=== PATIENT | female | born 1975 | race Caucasian/White ===

== ENCOUNTER 2022-03-10 16:00 | Outpatient (CLI) | payer OTHER, SELFPAY ==
[2022-03-10 17:29] LABS: Chloride* 101 mmol/L (96-114); Potassium* 4.1 mmol/L (3.6-5.1); Sodium* 136 mmol/L (135-149)
[2022-03-10 17:31] LABS: Cholesterol* 148 mg/dL (90-199)
[2022-03-10 17:32] LABS: Blood Urea Nitrogen* 15 mg/dL (5-24); Calcium* 9.6 mg/dL (8.4-10.6); Carbon Dioxide* 29 mmol/L (20-32); Creatinine* 0.7 mg/dL (0.5-1.5); Estimated Glomerular Filt Rate 108 ml/min; Glucose* 130 mg/dL (60-115); HDL Cholesterol* 61 mg/dL (>=50); LDL Cholesterol Calculated 48 mg/dL (<100); Triglycerides* 195 mg/dL (40-149)
== END 2022-03-10 16:01 | disposition home or self-care (01) ==
LOC: NFLDREF 16:03
PROVIDERS: PCP Family Medicine; Visit Provider Family Medicine
DX: I10 Essential (primary) hypertension (principal); E78.5 Hyperlipidemia, unspecified; E11.9 Type 2 diabetes mellitus without complications; E66.01 Morbid (severe) obesity due to excess calories
CPT/HCPCS: 80048; 80061

== ENCOUNTER 2022-10-27 10:05 | Outpatient (CLI) | payer OTHER, SELFPAY | END 2022-10-27 10:06 | disposition home or self-care (01) | PROVIDERS: PCP Family Medicine; Visit Provider Family Medicine | DX: Z01.818 Encounter for other preprocedural examination (principal); I10 Essential (primary) hypertension; E11.9 Type 2 diabetes mellitus without complications | CPT/HCPCS: 80048; 80061; 84460 ==

== ENCOUNTER 2022-11-14 09:01 | Inpatient (IN) | payer OTHER, SELFPAY ==
[2022-11-14] VITALS (32 sets, daily range): BP systolic 93–138; BP diastolic 47–86; PULSE 65–89; RESP 12–20; TEMP 36.3–36.9; O2SAT 92–97; BMI 39.9
[2022-11-14 09:38] LABS: Hemoglobin* 13.7 gm/dL (12.0-16.0)
--- NOTE | 2022-11-14 09:47 | W.PM.GYNPROC ---
Procedure Note Date of procedure: 11/14/22 Pre-op diagnosis: 1. Menorrhagia, failed medical management. 2. Large myomatous uterus. Post-op diagnosis: same Procedure: Total abdominal hysterectomy. Bilateral salpingectomies. Anesthesia: GETA and other (TAP block) Complications: None. Surgeon: Bette Denney MD Video Machines Mechanic: Francoise Ham Estimated blood loss (mL): 100 Pathology: specimen obtained, sent to pathology Condition: stable Disposition: PACU Findings: Enlarged, irregular lobular uterus containing multiple uterine fibroids. Uterine weight: 461 g. Evidence of prior tubal ligation. Normal-appearing distal fallopian tubes bilaterally. Left ovarian simple cyst, approximately 2 cm, otherwise normal-appearing ovaries bilaterally. Procedure Description: After obtaining informed consent, the patient was taken to the operating room where general anesthesia was obtained without difficulty. She was prepared and draped in the normal sterile fashion in the dorsal supine position. A Ma catheter was inserted sterilely into the bladder. A Pfannenstiel skin incision was made with a scalpel. The incision was not made to finger breast above the symphysis pubis, above the previous Pfannenstiel scar, as that scar was in a skin fold and thought to be too close to the symphysis pubis to provide adequate visualization. The incision was carried down to the underlying layer of fascia with the Bovie. The fascia was incised in the midline and the incision extended laterally. The superior and inferior aspects of the fascial incision were grasped with Helder clamps and the underlying rectus muscles dissected off sharply. The rectus muscles were in the midline. The underlying peritoneum was identified and entered bluntly. The peritoneal incision was extended superiorly and inferiorly with good visualization of the bladder. The patient was placed in some mild Trendelenburg positioning. The bowels were packed cephalad using a large moistened laparotomy sponge. The Cristino O retractor was placed in the incision. This provided excellent visualization of the pelvis. The pelvis was inspected with the findings noted above. Thao clamps were placed at the cornua bilaterally for traction. The ureters were nonvisualized given the significant adipose in the pelvis and obstruction of view due to the large uterus. The distal left fallopian tube was elevated with 2 Hector clamps, and the hand-held LigaSure device was used to seal the vascular and broad ligament attachments and excise the distal to. The right fallopian tube was elevated and excised using the handheld LigaSure device in a similar fashion. Excellent hemostasis was visualized. The right right round ligament was doubly clamped with Helder clamps, transected, and suture ligated with 0 Vicryl. The anterior leaf of the broad ligament was opened to the midline from the right side. The right ovarian ligament was then isolated, clamped across with 2 Dave clamps, transected, and doubly suture ligated with 0 Vicryl. Hemostasis was observed. Attention was then turned to the left side. The left round ligament was clamped with 2 Helder clamps, transected, and suture ligated with 0 Vicryl. The anterior leaf of the broad ligament was opened from the left side to the midline. The bladder was further pushed caudally with a sponge stick. The left ovarian ligament was clamped with 2 Dave clamps, transected, and doubly suture ligated with 0 Vicryl. Hemostasis was visualized. At this time, visualization access to the uterine arteries on both sides was thought to be impeded by a large anterior uterine fibroid. The decision was made to proceed with myomectomy. A dilute solution of vasopressin, 20 units in 50 mL normal saline, was injected into the anterior uterine serosa over the surface of the large anterior uterine fibroid. The serosa was then opened with electric cautery and the incision extended through the serosa to the underlying uterine fibroid. The fibroid was grasped with perforating towel clamps and bluntly and sharply dissected from the uterine myometrium. The fibroid was then passed off the field. The uterine serosa was reapproximated in a running locking fashion with 0 Vicryl to close the defect. The left uterine vessels were skeletonized and then clamped across with Dave clamps, transected, and suture ligated. Excellent hemostasis was obtained. The uterine vessels were skeletonized on the right side. The vessels were clamped across with a Dave and a straight clamp, transected, and suture ligated. Excellent hemostasis was obtained. The remaining cardinal and uterosacral ligament attachments on both sides were clamped with straight Dave clamps adjacent to the lower uterine segment and cervix, transected and suture ligated with 0 Vicryl. Excellent hemostasis was obtained. Two Dave clamps were placed across the vaginal cuff angles. The uterus with attached cervix was then transected and passed off the field. The vaginal cuff angles were fixed with Dave stitches of 0 Vicryl. The intervening vaginal cuff was closed with [id number] sutures of 0 Vicryl. The abdomen and pelvis were then copiously irrigated. No active bleeding was noted. Shellie was placed over raw tissue edges for additional hemostasis. All laparotomy sponges and instruments were then removed. The subfascial tissues were carefully inspected and hemostasis assured. The fascia was reapproximated in a running fashion with a looped 0 Maxon suture. The subcutaneous tissues were copiously irrigated and hemostasis assured. The subcutaneous adipose layer was reapproximated with interrupted sutures of 3-0 plain gut. The skin was closed in a subcuticular fashion with 4-0 Vicryl. Exofin surgical glue and a dressing were applied. The patient tolerated the procedure well. Sponge, lap, needle, instrument counts were reported as correct x2. The patient was taken to recovery room awake and in stable condition. She received 2 g of IV Ancef preoperatively. The uterus was weighed at the conclusion of the procedure, weight was 461 g. PATHOLOGY SPECIMEN(S): Uterus with attached cervix and attached proximal fallopian tubes. Separate anterior uterine leiomyoma. Distal fallopian tubes. The case needs a 22 modifier given the size of the uterus and patient's body habitus which made the case more difficult.
[2022-11-14 09:51] LABS: Ur HCG Qualitative* Negative (Negative)
[2022-11-14 09:54] LABS: Creatinine* 0.8 mg/dL (0.5-1.5); Est. Creatinine Clearance* 75.88; Estimated Glomerular Filt Rate 92 ml/min
--- NOTE | 2022-11-14 09:54 | W.ANESCHARGE ---
Anesthesia Charges Start Date/Time Anesthesia Start Date: 11/14/22 Anesthesia Start Time: 10:13 Stop Date/Time Anesthesia Stop Date: 11/14/22 Anesthesia Stop Time: 12:57
--- NOTE | 2022-11-14 09:54 | W.PM.NB ---
Nerve Block Nerve Block Time Seen by Provider: 10:24 Date Seen: 11/14/22 Type of block requested by surgeon for post-operative analgesia: TAP Side: bilateral Time out performed: Yes Verification of patient name: Yes Verification of date of : Yes Site marking: site marked Name of person performing procedure: Ke Continuous monitoring Was continuous monitoring of O2 sat, B/P, monitoring specialist, recorded every 15 minutes?: Yes Procedure Checklist: sterile prep, needles and gloves Ultrasound guided. Images saved: Yes Medications given in 5ml increments after negative aspiration: Marcaine %: 0.25 mL: 30 Needle gauge: 20 and Exparel mL: 10 Patient tolerated procedure well: Yes Additional comments: Needle noted adjacent to nerve Block Charges Block Charge (with Pro Fee): TAP Bilateral Use of Ultrasound Machine for Block: Yes- US Guidance/pain block
--- NOTE | 2022-11-14 10:09 | SUR.PREOP ---
unable to get iv statred here in preop. will start it in or, per anesthesia
[2022-11-14] MEDS: LACTATED RINGERS 1000 ML 1,000 ML 100 ML IV ×2 (10:17→11:18)
[2022-11-14] MEDS: CEFAZOLIN 2 GM INJ IVP (10:23)
[2022-11-14] MEDS: VASOPRESSIN 20 UNIT/ML INJ INJECTION (11:26)
[2022-11-14] MEDS: 0.9 % SODIUM CHLORIDE 100 ml 50 ML INJECTION (11:26)
--- NOTE | 2022-11-14 13:00 | W.ANESCHARGE ---
Anesthesia Charges Start Date/Time Anesthesia Start Date: 11/14/22 Anesthesia Start Time: 10:13 Stop Date/Time Anesthesia Stop Date: 11/14/22 Anesthesia Stop Time: 12:57
[2022-11-14] MEDS: fentaNYL 100 MCG/2 ML inj 50 MCG IVP ×2 (13:22→14:17)
[2022-11-14] MEDS: HYDROmorphone 0.5 mg/0.5 ml inj IVP ×3 (13:27→13:59)
[2022-11-14] MEDS: LACTATED RINGERS 1000 ML 1,000 ML 35 ML IV (13:30)
[2022-11-14] MEDS: MORPHINE 2 MG/ML inj IVP ×4 (14:46→22:34)
[2022-11-14] MEDS: KETOROLAC 30 MG/ML inj IVP (18:35)
[2022-11-14] MEDS: OXYCODONE 5 MG TABLET PO ×2 (19:23→23:33)
[2022-11-14] MEDS: LACTATED RINGERS 1000 ML 1,000 ML 125 ML IV (19:25)
[2022-11-14] MEDS: ENOXAPARIN 40 MG/0.4 ML INJ SUBCUT (20:48)
--- NOTE | 2022-11-14 22:26 | PC.NURSE ---
End of Shift: Patient pleasant and cooperative. Afebrile. Rating pain 9/10 upon arrival from PACU. Pain decreased to 5-6/10 throughout shift with PRN Morphine and Oxycodone and patient states tolerable. Up to chair with 1 assist. Tolerating regular diet with no nausea. Ma patent. Dressing to lower abdominal incision C/D/I. No bleeding noted.
[2022-11-15] MEDS: KETOROLAC 30 MG/ML inj IVP ×4 (00:21→18:57)
[2022-11-15 02:54] VITALS: BP 102/57; PULSE 80; RESP 16; TEMP 36.6; O2SAT 96
[2022-11-15] MEDS: OXYCODONE 5 MG TABLET PO ×3 (03:48→20:25)
[2022-11-15 06:42] LABS: Hemoglobin* 12.1 gm/dL (12.0-16.0)
--- NOTE | 2022-11-15 06:46 | PC.NURSE ---
End of shift: A&O pleasant and cooperative. VSS w/ sats >90% on RA. Pt rating pain 4-5/10. See eMAR for intervention. Dressing to abdomen c/d/i. Saline locked. Ambulated w/ A1 and gait belt. Tolerated well. Tolerating regular diet. Ma pulled this morning. ?
[2022-11-15 06:56] LABS: Creatinine* 0.8 mg/dL (0.5-1.5); Est. Creatinine Clearance* 75.88; Estimated Glomerular Filt Rate 92 ml/min
[2022-11-15 08:04] VITALS: BP 95/62; PULSE 85; RESP 16; TEMP 36.8; O2SAT 99
[2022-11-15] MEDS: ACETAMINOPHEN 500 MG TABLET 1000 MG PO (08:17)
[2022-11-15] MEDS: GLIMEPIRIDE 4 MG TABLET PO (08:19)
[2022-11-15] MEDS: hydroCHLOROthiazide 12.5 MG CAPSULE PO (08:19)
[2022-11-15] MEDS: lisinopriL 10 MG TABLET PO (08:19)
--- NOTE | 2022-11-15 08:39 | P.GYNPN_ITS ---
GRANITE BLOCK PAVER - A/P Assessment and plan (1) Status post abdominal hysterectomy: Status: Acute Postoperative Procedures: Procedures Operation Date: 11/14/22 10:15 Actual Procedure Side Surgeon p Total Abdominal Hysterectomy, Bilateral Salpingectomies Bette Denney MD Postoperative day: 1 Postoperative status: doing well Postoperative plan: routine post-op care Time Spent With Patient Time: Total time spent is greater than 50% in coordination of care (as documented) at patient's floor/unit and/or counseling patient: Time with patient: less than 15 minutes GRANITE BLOCK PAVER- PN:Subj Post-Op Subjective Time Seen by Provider: 08:30 Date Seen: 11/15/22 Post Operative Details: Post-operative day number 1: status post total abdominal hysterectomy with bilateral salpingectomies for menorrhagia secondary to a large myomatous uterus. Subjective: patient has no complaints, pain is well controlled, ambulating well, voiding without difficulty and patient is tolerating oral intake GRANITE BLOCK PAVER-PN: Obj Exam Physical Exam: Vital signs: Temp Pulse Resp BP Pulse Ox O2 Del Method 98.2 F 85 16 95/62 99 Room Air 11/15/22 08:04 11/15/22 08:04 11/15/22 08:04 11/15/22 08:04 11/15/22 08:04 11/15/22 08:04 Constitutional: Constitutional: no acute distress Routine HEENT Exam: Head: Present normal inspection Routine Neck Exam: Neck: Present supple Routine Respiratory Exam: Respiratory: Present CTA bilaterally; Absent crackles, rhonchi or wheezes Routine Cardiovascular Exam: Cardiovascular: Present RRR; Absent murmur Routine Abdominal Exam: Abdominal: Present normal bowel sounds and soft; Absent distended or tenderness Comments: Incision(s) clean, dry, intact Routine Extremities Exam: Extremities: Present normal inspection; Absent calf tenderness or pedal edema Routine Psychiatric Exam: Psychiatric: Present normal affect Urinary Catheter Management: Urethral: Cath placed during this visit: yes, but has since been removed by the nurse Reason for continuing: surgical procedure Insertion date: 11/14/22 Insertion time: 10:33 Removal date: 11/15/22 Removal time: 06:15 GRANITE BLOCK PAVER - PN: Obj Data Labs Labs: Laboratory Results - last 24 hr 11/14/22 11/14/22 11/15/22 09:30 Unknown 06:27 Hgb 13.7 12.1 Creatinine 0.8 0.8 Estimated Creat Clear 75.88 75.88 Estimated GFR 92 92 Urine HCG, Qual Negative Blood Type A Positive Antibody Screen NEGATIVE
[2022-11-15] MEDS: METFORMIN ER 500 MG 2000 MG PO (10:56)
[2022-11-15 11:38] VITALS: BP 119/70; PULSE 67; RESP 16; TEMP 36.6; O2SAT 100
[2022-11-15] MEDS: SIMETHICONE 80 MG TAB.CHEW 160 MG PO ×2 (15:25→20:25)
[2022-11-15 16:36] VITALS: BP 106/63; PULSE 84; RESP 16; TEMP 36.3; O2SAT 96
--- NOTE | 2022-11-15 18:22 | PC.NURSE ---
End of Shift:VSS on RA, patient reports pain between 4-6 this shift. Tolerating well after PRN medication administration. I gave PRN tylenol 1x and PRN oxy 1x as well. Horizontal incision CDI, open to air with dermabond. No erythema or drainage present. Pt reports feeling bloated and full, PRN simethicone given. Reports passing gas after administration. Voiding well. No bleeding this shift. Tolerating a regular diet with no nausea. Educated about importance of walking, TEDS in place, she refused SCD's this afternoon. Resting in bed comfortably with call light within reach. Calls appropriately. SBA to go to the BR and to walk.
[2022-11-15 19:30] VITALS: BP 105/60; PULSE 78; RESP 16; TEMP 36.6; O2SAT 97
[2022-11-15] MEDS: SENNOSIDES/DOCUSATE TABLET 2 TAB PO (20:20)
[2022-11-15] MEDS: ENOXAPARIN 40 MG/0.4 ML INJ SUBCUT (20:21)
--- NOTE | 2022-11-15 22:42 | PC.NURSE ---
End of shift nursing note, care provided from [id number]: Pt alert and oriented, pleasant and cooperative. Vitals stable, on RA. Pt rates pain 4-6/10 to abdomen. PRN Oxycodone 5mg admin. Ibuprofen time adjusted to follow direction of beginning 4hrs after last Toradol order. PRN Simethicone admin for gas relief. Scheduled Senna admin. Pt ambulated in [facility], able to pass flatus and have some relief from bloating discomfort. Incision to abd open to air w/ surgical glue in place, clean, dry and intact. Incision free of redness, warmth and swelling. Tolerated dinner, ate only about 25%, but denies nausea and has appetite. Tolerating oral intake. Voiding. Up w/ SBA. IV to L AC, flushed and saline locked. Pt has call light within reach and uses appropriately.
[2022-11-15] MEDS: IBUPROFEN 600 MG TABLET PO (22:58)
[2022-11-15 23:20] VITALS: BP 103/59; PULSE 78; PULSE 93; RESP 16; TEMP 36.7; O2SAT 96
[2022-11-16 02:48] VITALS: BP 117/70; PULSE 78; RESP 16; TEMP 36.7; O2SAT 95
[2022-11-16] MEDS: OXYCODONE 5 MG TABLET PO (05:10)
[2022-11-16] MEDS: IBUPROFEN 600 MG TABLET PO ×2 (05:10→11:11)
--- NOTE | 2022-11-16 06:43 | PC.NURSE ---
Pt alert and oriented x3. Afebrile. Pt reports pain 4/10 in?abdomen, pain managed with PRN medications. Pt chest pain, SOB, and N/V. Pt abdominal incision is glued and open to air and is CDI.?Pt is tolerating reg diet and voiding. Pt is up SBA. Pt slept throughout most of night.??
[2022-11-16 07:52] VITALS: BP 107/69; PULSE 78; RESP 16; TEMP 36.7; O2SAT 97
[2022-11-16] MEDS: GLIMEPIRIDE 4 MG TABLET PO (08:01)
[2022-11-16] MEDS: hydroCHLOROthiazide 12.5 MG CAPSULE PO (08:01)
[2022-11-16] MEDS: lisinopriL 10 MG TABLET PO (08:03)
[2022-11-16] MEDS: SIMETHICONE 80 MG TAB.CHEW 160 MG PO (08:03)
[2022-11-16] MEDS: METFORMIN ER 500 MG 2000 MG PO (08:04)
--- NOTE | 2022-11-16 10:37 | P.DS_ITS ---
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 Indication for surgery: Abnormal uterine bleeding, myomatous uterus. She had an uncomplicated surgery. Postoperative course has been uneventful. Vitals have been stable. She has remained afebrile. Today, on postoperative day 2, she reports the pain is well controlled. She has been able to ambulate Without difficulty. She is tolerating regular diet. She is passing flatus. Ma catheter has been removed, and she is voiding without difficulty. Time Spent with Patient Time attestation: Total time spent providing and/or coordinating discharge services: Time spent: Less than 30 minutes LAUNDRY PRICING CLERK - Exam Physical Exam: Vital signs: Temp Pulse Resp BP Pulse Ox O2 Del Method 98.0 F 78 16 107/69 97 Room Air 11/16/22 07:52 11/16/22 07:52 11/16/22 07:52 11/16/22 07:52 11/16/22 07:52 11/16/22 07:52 Narrative: VITAL SIGNS: As noted above. GENERAL APPEARANCE: Alert, cooperative female in no acute distress. MOOD & AFFECT: Normal. ABDOMEN: Soft, non-distended and appropriately tender, incision healing well, no surrounding erythema, induration or abnormal discharge. : No abnormal discharge, minimal spotting. EXTREMITIES: Nonedematous. Well perfused. Nontender. LAUNDRY PRICING CLERK - DS: Data Procedures Procedures: Procedures Operation Date: 11/14/22 10:15 Actual Procedure Side Surgeon p Total Abdominal Hysterectomy, Bilateral Salpingectomies Bette Denney MD Complications: none Discharge Plan Discharge Disposition: Home, Self-Care Date of Admission: 11/14/22 09:01 Attending Provider on Discharge: Paola Sharp Primary Care Provider: Madan Wilkinson Condition: Stable Anticipated Discharge Date/Time: 11/16/22 12:00 Discharge Medications: New ibuprofen 600 mg Tablet 600 mg PO Q6H Qty: 30 0RF oxycodone 5 mg Tablet 5 mg PO Q6H PRN (Reason: Moderate Pain) Qty: 20 0RF Continued gabapentin 100 mg capsule 100 mg PO 3XD metformin 500 mg tablet extended release 24 hr 2,000 mg PO QDAY Qty: 120 5RF atorvastatin [Lipitor] 10 mg tablet 10 mg PO QPM Qty: 30 5RF Senna Plus 8.6-50 mg capsule 2 tab-cap PO .QHS dextroamphetamine-amphetamine [Adderall XR] 30 mg capsule,extended release 24hr 60 mg PO QDAY lisinopril-hydrochlorothiazide 10-12.5 mg tablet 1 tab PO QDAY Qty: 90 3RF glimepiride 4 mg tablet 4 mg PO QAM Qty: 30 2RF Rx Instructions: administer with breakfast Discontinued Mirena 20 mcg/24 hours (8 yrs) 52 mg intrauterine device 1 device intrauterine ONCE Rx Instructions: as a single dose No Action (DME) lancets [OneTouch UltraSoft Lancets] Misc See Rx Instructions .Route Qty: 100 12RF Rx Instructions: BID PRN (DME) blood-glucose meter [OneTouch Ultra2 Meter] Misc See Rx Instructions .Route Rx Instructions: As directed (DME) OneTouch Ultra Test Strip See Rx Instructions .Route Rx Instructions: BID PRN Discharge Orders: Discharge Order (Routine); Ordered 11/16/22 Ordered By: Paola Sharp Patient Education: Hysterectomy (DC) Additional Instructions: Discharge instructions were reviewed with the patient including signs and symptoms of infection and medications to use for pain.? ? No lifting greater than 20 pounds for 6 weeks. Nothing per vagina for 6 weeks. Off work or school for 6 weeks. ? Follow up with your surgeon in 2 weeks for incision check and 6 weeks for a postoperative visit or sooner as needed. Activity Level: No strenuous activity Discharge Diet: Diabetic Follow Up Appointments: Madan Wilkinson MD [Primary Care Provider] - [facility]: [facility] Inst[facility]
--- NOTE | 2022-11-16 11:55 | PC.NURSE ---
Discharge note- Pt discharged home @ 1130 with her , all discharge instructions were reviewed and educated on symptoms regarding infection and when her follow up appointment is. Prescriptions were sent to her preferred pharmacy.
== END 2022-11-16 11:30 | disposition home or self-care (01) | DRG 742 ==
PROVIDERS: Admitting Provider Obstetrics & Gynecology; PCP Family Medicine; Visit Provider Obstetrics & Gynecology
PROC: 0UT94ZZ Resection of Uterus, Percutaneous Endoscopic Approach (ICD-10-PCS; CPT 52000; principal; 2022-11-14 10:15)
DX: N92.0 Excessive and frequent menstruation with regular cycle (principal); Z68.41 Body mass index [BMI] 40.0-44.9, adult; D25.9 Leiomyoma of uterus, unspecified; N84.1 Polyp of cervix uteri; N83.292 Other ovarian cyst, left side; E66.01 Morbid (severe) obesity due to excess calories; I10 Essential (primary) hypertension; E11.65 Type 2 diabetes mellitus with hyperglycemia; Z79.84 Long term (current) use of oral hypoglycemic drugs; G47.419 Narcolepsy without cataplexy; Z86.73 Personal history of transient ischemic attack (TIA), and cerebral infarction without residual deficits; G89.18 Other acute postprocedural pain
CPT/HCPCS: 00840; 36415; 64488; 76942; 81025; 82565; 82962; 85018; 86850; 86900; 86901; 88307; A9270; C9290; J0665; J0690; J1100; J1170; J1650; J1885; J2250; J2270; J2371; J2405; J2704; J2710; J3010; J3475; J7120

== ENCOUNTER 2023-05-16 13:43 | Outpatient (REF) | payer BC, SELFPAY ==
[2023-05-16 14:45] LABS: Ferritin* 53.6 ng/mL (6.24-137.0)
== END 2023-05-16 13:44 | disposition home or self-care (01) ==
LOC: NPINS 13:43
PROVIDERS: PCP Family Medicine; Visit Provider Psychiatry & Neurology Neurology
DX: N92.0 Excessive and frequent menstruation with regular cycle (principal)
CPT/HCPCS: 82728

== ENCOUNTER 2023-11-21 08:31 | Outpatient (CLI) | payer BC, SELFPAY ==
--- OUTSIDE RECORDS SUMMARY | 2023-11-21 08:35 | XMS_ITS | Clinical Summary ---
Author Organization [facility] Address [address] [place] [address] Care Team Providers Care Lands Resource Manager Name Role Phone Unavailable Primary Care Provider Unavailabl e Source Comments Patient records contain information from all sites at [facility]. For routine questions regarding patient records, call [phone] during business hours, M-F 8:00 AM - 5:00 PM Central Time. Record requests for emergency care only can be directed to [phone] at any time.[facility] Allergies No known active allergies Medications Medication Sig Dispensed Refills Start Date End Date Status atorvastatin (LIPITOR) 10 mg tablet Take 10 mg by mouth daily. 06/15/2019 Active amphetamine-dextroam phetamine (ADDERALL XR) 30 mg 24 hr capsule Take 60 mg by mouth daily. 12/08/2011 Active metFORMIN XR (GLUCOPHAGE-XR) 500 mg 24 hr tablet Take 2 tablets by mouth daily. 05/12/2019 Active polyethylene glycol (MIRALAX) 17 gram/dose oral powder Take 17 g by mouth daily as needed for constipation. Dissolve each 17 g dose in 240 mLs (8 ounces) of beverage. Active clotrimazole-betamet hasone (LOTRISONE) 1-0.05 % cream Twice A Day 06/18/2014 Active Accu-Chek Softclix Lancets lancets TEST TWICE DAILY NEEDED 03/31/2020 Active FLUoxetine (PROzac) 40 mg capsule Take 40 mg by mouth daily. 08/03/2021 Active lisinopril-hydroCHLO ROthiazide (PRINZIDE,ZESTORETIC ) 10-12.5 mg per tablet Take 1 tablet by mouth daily. 08/03/2021 Active gabapentin (NEURONTIN) 100 mg capsule Take 1-3 capsule by mouth every night as directed 1 hr before bed for RLS 04/25/2022 Active lamoTRIgine (LaMICtaL) 100 mg tabletIndications:[facility] (HCC) Take 1 tablet (100 mg total) by mouth 2 (two) times a day. AFTER COMPLETING 25 MG RX PER MED SCHEDULE, SWITCH TO 100 MG AND TAKE 1 TABLET TWICE DAILY 60 tablet 11 08/28/2022 Active lamoTRIgine (LaMICtaL) 25 mg tabletIndications:[facility] (HCC) Take 2 tablets (50 mg total) by mouth 2 (two) times a day for 7 days, THEN 2 tablets (50 mg total) daily for 7 days. Then discontinue.. 42 tablet 10/30/2022 Active Active Problems Problem Noted Date Diagnosed Date [facility] 05/05/2020 Craniotomy Status Post 02/26/2020 Diabetes Mellitus Type 2 02/26/2020 Hyponatremia 02/26/2020 Mass Dura Brain 01/13/2020 Overview (01/13/2020): Added automatically from request for surgery [id number] Social History Tobacco Use Types Packs/Day Years Used Date Smoking Tobacco: Never Smokeless Tobacco: Never Tobacco Cessation:Counseling Given: Not Answered Alcohol Use Standard Drinks/Week Comments Not Currently 0 (1 standard drink = 0.6 oz pur e alcohol) a couple drinks per month Humiliation, Afraid, Rape, and Kick questionnair e Answer Date Recorded Within the last year, have y ou been afraid of your partner or ex-partner? No 06/28/2022 Within the last year, have y ou been humiliated or emotionally abused in other ways by your partner or ex-partner? No Within the last year, have y ou been kicked, hit, slapped, or otherwise physically hurt by your partner or ex-partner? No 06/28/2022 Within the last year, have y ou been raped or forced to have any kind of sexual activity by your partner or ex-partner? No 06/28/2022 Social Connection and Isolat ion Panel [NHANES] Answer Date Recorded In a typical week, how many times do you talk on the phone with family, friends, or neighbors? More than three times a week 06/28/2022 How often do you get togethe r with friends or relatives? Three times a week 06/28/2022 How often do you attend chur ch or sabianism services? 1 to 4 times per year 06/28/2022 Do you belong to any clubs o r organizations such as voodoo groups, unions, fraternal or athletic groups, or school groups? No 06/28/2022 How often do you attend meet ings of the clubs or organizations you belong to? 1 to 4 times per year 06/28/2022 Are you , , di vorced, , never , or living with a partner? 06/28/2022 AUDIT-C Answer Date Recorded Q1: How often do you have a drink containing alc ohol? Monthly or less 06/28/2022 Q2: How many drinks containi ng alcohol do you have on a typical day when you are drinking? 1 or 2 06/28/2022 Q3: How often do you have si x or more drinks on one occasion? Less than monthly 06/28/2022 Overall Financial Resource Strain (CARDIA) Answe r Date Recorded How hard is it for you to pa y for the very basics like food, housing, medical care, and heating? Not hard at all 06/28/2022 [facility] - Occupational Stress Questionnaire Answer Date Recorded Do you feel stress - tense, restless, nervous, or anxious, or unable to sleep at night because your mind is troubled all the time - these days? Only a little 06/28/2022 Exercise Vital Sign Answer Date Recorde d On average, how many days pe r week do you engage in moderate to strenuous exercise (like a brisk walk)? 3 days 06/28/2022 On average, how many minutes do you engage in exercise at this level? 20 min 06/28/2022 Hunger Vital Sign Answer Date Recorded Within the past 12 months, y ou worried that your food would run out before you got the money to buy more. Never true 06/29/19 23 Within the past 12 months, t he food you bought just didn't last and you didn't have money to get more. Never true 06/28/2022 PRAPARE - Transportation Answer Date Re corded In the past 12 months, has l ack of transportation kept you from medical appointments or from getting medications? No 06/10 In the past 12 months, has l ack of transportation kept you from meetings, work, or from getting things needed for daily living? No 06/28/2022 Housing Stability Vital Sign Answer Jeremi e Recorded In the last 12 months, was t here a time when you were not able to pay the mortgage or rent on time? No 06/28/2022 In the last 12 months, how many places have you lived? 1 06/28/2022 In the last 12 months, was t here a time when you did not have a steady place to sleep or slept in a long term (including now)? No 06/28/2022 Nutrition Answer Date Recorded Nutrition: EVOO Fat Source Yes 06/28 On average, how many serving s of fruits and vegetables do you eat per day (serving size is equal to 1 cup or approximately the size of a tennis ball)? 4-5 06/28/2022 Dental Answer Date Recorded Dental: Regular Dentist Yes 08/23/19 Employment Answer Date Recorded Employment status Employed and actively working without restrictions 06/28/2022 Education Answer Date Recorded What is the highest level of school you have completed or the highest degree you have received? Associate degree: occupational, technical, or vocational program 06/29/2020 Sex and Gender Information Value Date Recorded Sex Assigned at Female 08/22/2021 9:24 PM CDT Gender Identity Female 01/20/2020 1:22 PM OPTIMIZATION ENGINEER Sexual Orientation Straight 01/20/2020 1: 22 PM OPTIMIZATION ENGINEER Last Filed Vital Signs Vital Sign Reading Time Taken Comments Blood Pressure 125/80 10/30/2022 8:14 AM CDT Pulse 87 10/30/2022 8:14 AM CDT Temperature 37.8 ??C (100 ??F) 03/30/2020 10:25 AM CS T Respiratory Rate 16 02/27/2020 7:00 AM OPTIMIZATION ENGINEER Oxygen Saturation 100% 02/27/2020 7:00 AM OPTIMIZATION ENGINEER Inhaled Oxygen Concentration - - Weight 105 kg (231 lb 0.7 oz) 06/29/2022 2:20 PM CDT Height 163.6 cm (5' 4.41) 06/29/2020 2:37 PM CD T Body Mass Index 39.16 06/29/2020 2:37 PM CDT Plan of Treatment Health Maintenance Due Date Last Done Comments CT Colonography 1976 Cologuard 1976 Colonoscopy 1976 Colorectal Cancer Screening 1976 Diabetic Office Visit with F oot Exam 1976 Dilated Eye Exam 1976 FIT 1976 HIV Screening 1976 Hepatitis C Screening 1976 Mammogram 1976 Urine Albumin 1976 Pneumococcal vaccine (0-64 y ears) (1 of 2 - PCV) 01/10/1982 Hepatitis B Vaccines (1 of 3 - 19+ 3-dose series) 01/10/1995 Cervical Cancer Screening 02/26/2015 02/27/2012 Hemoglobin A1C 08/23/2020 02/23/2020, 06/14/2019 Creatinine Level (Kidney Fun ction Test) 02/26/2021 02/27/2020, 02/26/2020, 02/25/2020, Additional history exists Potassium Level 02/26/2021 02/27/2020, 02/09, 02/25/2020, Additional history exists Sodium Level 02/26/2021 02/27/2020, 02/09, 02/26/2020, Additional history exists Depression Screening (Annual PHQ-2) 03/12/2023 Office Visit for Blood Press ure Check / Re-check 10/31/2023 10/30/2022 COVID-19 Vaccine (4 - 2022-2 4 season) 2023 03/21/2021, 05/19/2020, 04/21/2020 Influenza Vaccine (#1) 2023 01/29/2001 Lipid (Cholesterol) Screening 06/14/2024 06/15/2019 DTaP,Tdap,and Td Vaccines (8 - Td or Tdap) 08/07/2029 08/08/2019, 01/13/2008, 03/24/1981, Additional history exists Medical Devices Implanted Type Area Primer Inserting Machine Operator Device Identifier Shelf Expiration Date Model / Serial / Lot Scrw Ti Sdr Lp 1.6x2.9x6 - [id number] Implanted:Qty: 1 on 02/24/2020 by Kaz Ceron M.B.B.S. at [facility] Hardware e.g. pins/screws/r ods Depuy Synthes [id number] / / Scrw Mdface Sdrl 1.5x2.9x4 - [id number] Implanted:Qty: 12 on 02/24/2020 by Kaz Ceron M.B.B.S. at [facility] Hardware e.g. pins/screws/r ods Depuy Synthes 400.834E / / Plt L1 Neuro Cmf Cvr Bur 12 - [id number] Implanted:Qty: 1 on 02/24/2020 by Kaz Ceron M.B.B.S. at [facility] Hardware e.g. pins/screws/r ods Depuy Synthes 421.525 / / Plt L1 Neuro Cmf Cvr Bur 17 - [id number] Implanted:Qty: 2 on 02/24/2020 by Kaz Ceron M.B.B.S. at [facility] Hardware e.g. pins/screws/r ods Depuy Synthes [id number] / / Procedures Procedure Name Priority Date/Time Associated Diagnosis Comments BASIC METABOLIC PANEL, S/P Routine 02/27/2020 6:18 AM OPTIMIZATION ENGINEER HEMOGLOBIN A1C, B Routine 02/23/2020 12: 33 PM OPTIMIZATION ENGINEER Mass Dura Brain from Last 3 Months or Most Recently Relevant to Health Maintenance Results * (ABNORMAL) Basic Metabolic Panel (02/27/2020 6:18 AM OPTIMIZATION ENGINEER) Potassium, P 4.0 3.6 - 5.2 mmol/L 02/27/2020 7:05 AM OPTIMIZATION ENGINEER MKTO Sodium, P 137 135 - 145 mmol/L 02/27/2020 7:05 AM OPTIMIZATION ENGINEER MKTO Chloride, P 104 98 - 107 mmol/L 02/27/2020 7:05 AM OPTIMIZATION ENGINEER MKTO Bicarbonate, P 24 22 - 29 mmol/L 02/27/2020 7:05 AM OPTIMIZATION ENGINEER MKTO Anion Gap, P 9 7 - 15 02/27/2020 7:05 AM OPTIMIZATION ENGINEER MKTO BUN (Blood Urea Nitrogen), P 16 6 - 21 mg/dL 02/27/2020 7:05 AM OPTIMIZATION ENGINEER MKTO Creatinine 0.77 0.59 - 1.04 mg/dL 02/27/2020 7:05 AM OPTIMIZATION ENGINEER MKTO eGFR-Black/Afri can Nigerien >90 >=60 mL/min/BSA 02/27/2020 7:05 AM OPTIMIZATION ENGINEER MKTO Comment: ----ADDITIONAL INFORMATION---- Estimated GFR calculated using the 2009 CKD_EPI creatinine equation. eGFR Non-Black/Afric an Nigerien >90 >=60 mL/min/BSA 02/27/2020 7:05 AM OPTIMIZATION ENGINEER MKTO Comment: ----ADDITIONAL INFORMATION---- Estimated GFR calculated using the 2009 CKD_EPI creatinine equation. Calcium, Total, P 7.9(L) 8.6 - 10.0 mg/dL 02/27/2020 7:05 AM OPTIMIZATION ENGINEER MKTO Glucose, P 165(H) 70 - 140 mg/dL 02/27/2020 7:05 AM OPTIMIZATION ENGINEER TO Blood (Blood, Venous) 02/27/2020 6:18 AM OPTIMIZATION ENGINEER 02/27/2020 6:42 AM OPTIMIZATION ENGINEER Zaki Arrieta APRN C.N.P., M.S.N. [place] [address], [facility] [place] [address] * (ABNORMAL) Hemoglobin A1c (02/23/2020 12:33 PM OPTIMIZATION ENGINEER) Hemoglobin A1c, B 6.5(H) 4.2 - 5.6 % 02/23/2020 12:59 PM OPTIMIZATION ENGINEER MKTO Comment: Hemoglobin A1c values greater than or equal to 6.5 percent are diagnostic for diabetes mellitus. ??Diagnosis should be confirmed by repeat testing. ??In diabetic patients, HbA1c goals should be discussed with healthcare provider. Blood (Blood, Venous) 02/23/2020 12:33 PM OPTIMIZATION ENGINEER 02/23/2020 12:36 PM OPTIMIZATION ENGINEER Kaz Colindres LAB BLOOD ADD-O N [facility] [address] [place] [address], [facility] [place] MKTO [facility] [place] [address] [place] [address] from Last 3 Months or Most Recently Relevant to Health Maintenance Advance Directives For more information, please contact: [phone] * Full Code (Latest Code Status on File) Date Activated Date Inactivated Comments 02/24/2020 4:49 PM 02/27/2020 1:44 PM Question Answer Comments Full Code: Discussed
--- OUTSIDE RECORDS SUMMARY | 2023-11-21 08:35 | XMS_ITS | Referral Summary ---
Author Organization [facility] Address [address] [place] [address] Care Team Providers Care Transportation Design Engineer Name Role Phone Unavailable Primary Care Provider Unavailabl e Source Comments Patient records contain information from all sites at [facility]. For routine questions regarding patient records, call [phone] during business hours, M-F 8:00 AM - 5:00 PM Central Time. Record requests for emergency care only can be directed to [phone] at any time.[facility] Allergies No known active allergies Medications Medication [...] (01/13/2020): Added automatically from request for surgery [id number] Social History Tobacco Use Types Packs/Day Years [...] often do you attend chur ch or buddhism services? 1 to 4 times per year 06/28/2022 Do you belong to any clubs o r organizations such as yazdanism groups, unions, fraternal or athletic groups, or [...] and heating? Not hard at all 06/28/2022 [facility] - Occupational Stress Questionnaire Answer Date [...] place to sleep or slept in a fdc (including now)? No 06/28/2022 Nutrition Answer Date [...] CDT Gender Identity Female 01/20/2020 1:22 PM MOTOR ROUTE CARRIER Sexual Orientation Straight 01/20/2020 1: 22 PM MOTOR ROUTE CARRIER Last Filed Vital Signs Vital Sign Reading Time Taken Comments Blood Pressure 125/80 10/30/2022 8:14 AM CDT Pulse 87 10/30/2022 8:14 AM CDT Temperature 37.8 ??C (100 ??F) 03/30/2020 10:25 AM CS T Respiratory Rate 16 02/27/2020 7:00 AM MOTOR ROUTE CARRIER Oxygen Saturation 100% 02/27/2020 7:00 AM MOTOR ROUTE CARRIER Inhaled Oxygen Concentration - - Weight 105 kg (231 lb 0.7 oz) 06/29/2022 2:20 PM CDT Height 163.6 cm (5' 4.41) 06/29/2020 2:37 PM CD T Body Mass Index 39.16 06/29/2020 2:37 PM CDT Plan of Treatment Not on file Medical Devices Implanted Type Area Home Economics Expert Device Identifier Shelf Expiration Date Model / Serial / Lot Scrw Ti Sdr Lp 1.6x2.9x6 - [id number] Implanted:Qty: 1 on 02/24/2020 by Kaz Ceron M.B.B.S. at [facility] Hardware e.g. pins/screws/r ods Depuy Synthes 400.836E / / Scrw Mdface Sdrl 1.5x2.9x4 - [id number] Implanted:Qty: 12 on 02/24/2020 by Kza Ceron M.B.B.S. at [facility] Hardware e.g. pins/screws/r ods Depuy Synthes 400.834E / / Plt L1 Neuro Cmf Cvr Bur 12 - [id number] Implanted:Qty: 1 on 02/24/2020 by Kaz Ceron M.B.B.S. at [facility] Hardware e.g. pins/screws/r ods Depuy Synthes [id number] / / Plt L1 Neuro Cmf Cvr Bur 17 - [id number] Implanted:Qty: 2 on 02/24/2020 by Kaz Ceron M.B.B.S. at [facility] Hardware e.g. pins/screws/r ods Depuy Synthes [id number] / / Procedures Procedure Name Priority Date/Time Associated Diagnosis Comments BASIC METABOLIC PANEL, S/P Routine 02/27/2020 6:18 AM MOTOR ROUTE CARRIER HEMOGLOBIN A1C, B Routine 02/23/2020 12: 33 PM MOTOR ROUTE CARRIER Mass Dura Brain from Last 3 Months or Most Recently Relevant to Health Maintenance Results * (ABNORMAL) Basic Metabolic Panel (02/27/2020 6:18 AM MOTOR ROUTE CARRIER) [facility] Potassium, P 4.0 3.6 - 5.2 mmol/L 02/27/2020 7:05 AM MOTOR ROUTE CARRIER TO Sodium, P 137 135 - 145 mmol/L 02/27/2020 7:05 AM MOTOR ROUTE CARRIER TO Chloride, P 104 98 - 107 mmol/L 02/27/2020 7:05 AM MOTOR ROUTE CARRIER TO Bicarbonate, P 24 22 - 29 mmol/L 02/27/2020 7:05 AM MOTOR ROUTE CARRIER TO Anion Gap, P 9 7 - 15 02/27/2020 7:05 AM MOTOR ROUTE CARRIER TO BUN (Blood Urea Nitrogen), P 16 6 - 21 mg/dL 02/27/2020 7:05 AM MOTOR ROUTE CARRIER MKTO Creatinine 0.77 0.59 - 1.04 mg/dL 02/27/2020 7:05 AM MOTOR ROUTE CARRIER TO eGFR-Black/Afri can Cypriot >90 >=60 mL/min/BSA 02/27/2020 7:05 AM MOTOR ROUTE CARRIER MKTO Comment: ----ADDITIONAL INFORMATION---- Estimated GFR calculated using the 2009 CKD_EPI creatinine equation. eGFR Non-Black/Afric an Cypriot >90 >=60 mL/min/BSA 02/27/2020 7:05 AM MOTOR ROUTE CARRIER MKTO Comment: ----ADDITIONAL INFORMATION---- Estimated GFR calculated using the 2009 CKD_EPI creatinine equation. Calcium, Total, P 7.9(L) 8.6 - 10.0 mg/dL 02/27/2020 7:05 AM MOTOR ROUTE CARRIER TO Glucose, P 165(H) 70 - 140 mg/dL 02/27/2020 7:05 AM MOTOR ROUTE CARRIER TO Blood (Blood, Venous) 02/27/2020 6:18 AM MOTOR ROUTE CARRIER 02/27/2020 6:42 AM MOTOR ROUTE CARRIER Zaki Arrieta APRN, C.N.P., M.S.N. L AB BLOOD ADD-ON [facility] [place] [address], [facility] [place] [address] * (ABNORMAL) Hemoglobin A1c (02/23/2020 12:33 PM MOTOR ROUTE CARRIER) Hemoglobin A1c, B 6.5(H) 4.2 - 5.6 % 02/23/2020 12:59 PM MOTOR ROUTE CARRIER MKTO Comment: Hemoglobin A1c values greater than or equal to 6.5 percent are diagnostic for diabetes mellitus. ??Diagnosis should be confirmed by repeat testing. ??In diabetic patients, HbA1c goals should be discussed with healthcare provider. Blood (Blood, Venous) 02/23/2020 12:33 PM MOTOR ROUTE CARRIER 02/23/2020 12:36 PM MOTOR ROUTE CARRIER Kaz Colindres LAB BLOOD ADD-O N [facility] [address] [place] [address], [facility] MKTO [facility] [place] [address] [place] [id number] from Last 3 Months or Most Recently Relevant to Health Maintenance Advance Directives For more information, please contact: [phone] * Full Code (Latest Code Status on File) Date Activated Date Inactivated Comments 02/24/2020 4:49 PM 02/27/2020 1:44 PM Question Answer Comments Full Code: Discussed
--- OUTSIDE RECORDS SUMMARY | 2023-11-21 08:35 | XMS_ITS ---
Author Organization [facility] Address [address] [place] [address] Care Team Providers Care Air Analyst Name Role Phone Unavailable Unavailable Unavailable Surgery Details Not on file Complications Check Surgery Details section. Procedure Estimated Blood Loss Check Surgery Details section. Procedure Findings Check Surgery Details section. Procedure Specimens Taken Check Surgery Details section.
--- OUTSIDE RECORDS SUMMARY | 2023-11-21 08:35 | XMS_ITS | Clinical Summary ---
Author Organization [facility] Address [place], [place] [address] Care Team Providers Care Plow Shaker Name Role Phone Wendi Goldman PACKAGE CRIMPER Primary Care Provider Unava ilable Allergies No known active allergies Medications Medication Sig Dispensed Refills Start Date End Date Status dextroamphetamine-amp hetamine (ADDERALL XR) 30 mg Extended-Release capsuleIndications:Na rcolepsy Take 60 mg by mouth once daily 0 12/08/2011 Active metFORMIN (GLUCOPHAGE XR) 500 mg Extended-Release tablet Take 2 tablets by mouth once daily. 05/12/2019 Active lisinopril-hydrochlor othiazide, 20-25 mg, (PRINZIDE, ZESTORETIC) 20-25 mg per tablet Take 1 tablet by mouth once daily. 05/06/2019 Active aspirin chewable 81 mg chewable tabletIndications:3rd cranial nerve palsy, left Take 1 tablet by mouth once daily with a meal. 60 tablet 06/15/2019 Active atorvastatin (LIPITOR) 10 mg tabletIndications:3rd cranial nerve palsy, left Take 1 tablet by mouth once daily. 60 tablet 06/15/2019 Active WalkerIndications:Acu te severe vertigo,3rd cranial nerve palsy, left,Unsteady gait Rolling walker for home use. Length of need is 6 weeks. 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 managed w diet Pyelonephritis, unspecified 12/19/2006 02/22/2009 Infections of genitourinary tract in , unspecified as to episode of care(646.60) 12/19/2006 02/22/2009 Overview (12/19/2006): UTI earlier in treated with po Amoxicillin state, incidental 12/19/2006 1 03/14/2007 Shortness of breath 12/19/2006 02/23/20 09 Anemia, unspecified 12/19/2006 02/23/20 09 Immunizations Name Administration Dates Next Due Td (Age >=7 Years) 11/15/1998 Tdap 01/13/2008 Family History Medical History Relation Name Comments Good Health Brother 2 Good Health Daughter 2 Good Health Father Diabetes Maternal Grandfather Good Health Maternal Grandmother Diabetes Mother Diabetes Paternal Grandfather Diabetes Paternal Grandmother Good Health Son 3 Good Health Son 4 Cancer-breast No Family History Cancer-colon No Family History Relation Name Status Comments Brother 1 Alive Brother 2 Daughter 1 Alive Daughter 2 Father Alive Maternal Grandfather Maternal Grandmother Alive Mother Alive Paternal Grandfather Paternal Grandmother Alive Son 1 Alive Son 2 Alive Son 3 Son 4 Social History Tobacco Use Types Packs/Day Years Used Date Smoking Tobacco: Never Smokeless Tobacco: Never Tobacco Cessation:Counseling Given: Yes Alcohol Use Standard Drinks/Week Comments Yes 0 (1 standard drink = 0.6 oz pur e alcohol) socially/ocassionally Sex and Gender Information Value Date Recorded Sex Assigned at Not on file Gender Identity Not on file Sexual Orientation Not on file Obstetrics History Para Term AB IAB SAB Ectopic Multiple Livin g Live Births 3 3 3 0 0 0 0 0 3 3 Date Outcome GA Total Labor Labor/2nd/3rd Weight Sex Type Anes PTL Maryellen A1 A5 Name Clin 001 Term 37w 0d 3.2 kg (7 lb 1 oz) F Vag Livin g Cory a Delivery Location:[facility] Comments:uncomplicated 004 Term 38w 0d 3.77 kg (8 lb 5 oz) M Vag None Livin g Harley Delivery Location:[facility] Comments:some shoulder dystocia 008 Term 40w 0d M Vag Livin g Yousuf Last Filed Vital Signs Vital Sign Reading Time Taken Comments Blood Pressure 106/63 06/15/2019 3:54 PM CDT Pulse 87 06/15/2019 4:18 PM CDT Temperature 36.9 ??C (98.5 ??F) 06/15/2019 3:54 PM CD T Respiratory Rate 18 06/15/2019 3:54 PM CDT Oxygen Saturation 97% 06/15/2019 3:54 PM CDT Inhaled Oxygen Concentration - - Weight 97.5 kg (215 lb) 06/14/2019 3:47 PM CDT Height 160 cm (5' 3) 06/14/2019 3:47 PM CDT Body Mass Index 38.09 06/14/2019 3:47 PM CDT Plan of Treatment Health Maintenance Due Date Last Done Comments Depression screening for age 12+ 1988 BMI (ht and wt on same day) for age 18+ 01/10/1994 Hepatitis C screening for age 18-79 01/10/1994 Tetanus booster 01/12/2018 01/13/2008, 11/15/1998 Pap test for age 21-65 02/21/2020 7, 02/20/2017, 02/08/2017, Additional history exists Colonoscopy through age 75 01/10/2021 Mammogram for age 45-75 01/10/2021 COVID-19 vaccine series ( season) 2023 Influenza for age 9-49 11/11/2023 Lipids for age 45-75 06/14/2024 06/15/2019, 12/08/2011, 10/18/2010, Additional history exists HIV for age 15-65 Completed 09/11/2006 Tdap Completed 01/13/2008 Pneumococcal series for age 6-64 Aged Out No longer eligible based on patient's age to complete this topic Procedures Procedure Name Priority Date/Time Associated Diagnosis Comments LIPID PANEL Early AM 06/15/2019 6:51 AM CDT [employer] TE[employer]ER THIN PREP PAP SCREEN IMAGED Routine 02/20/2017 4:10 PM MANAGER ANALYTICAL ANTI HIV 1/2 Routine 09/11/2006 10:59 AM CDT Supervision Of Other Normal from Last 3 Months or Most Recently Relevant to Health Maintenance Results * (ABNORMAL) LIPID PANEL (06/15/2019 6:51 AM CDT) CHOLESTEROL,TOTAL 178 100 - 199 mg/dL 06/15/2019 7:20 AM CDT [facility] TRIGLYCERIDES 165(H) <150 mg/dL 06/15/2019 7:20 AM CDT [facility] HDL CHOLESTEROL 35(L) >40 mg/dL 0 7:20 AM CDT [facility] NON-HDL CHOLESTEROL 143 <145 mg/dl 06/15/2019 7:20 AM CDT [facility] CHOL/HDL RATIO 5.09(H) <4.50 06/15/2019 7:20 AM CDT [facility] LDL CHOLESTEROL 110 <=130 mg/dL 06/15/2019 7:20 AM CDT [facility] PROVIDER ORDERED STATUS RANDOM 06/15/2019 7:20 AM CDT [facility] Blood BLOOD SPECIMEN / Unknown Venipuncture / Unknown 06/15/2019 6:51 AM CDT 06/15/2019 6:58 AM CDT Rajendra Hernandez DO CHEMISTRY [facility] [address] [place] [address], * [employer] THIN PREP PAP SCREEN IMAGED (02/20/2017 4:10 PM MANAGER ANALYTICAL) Case Report Gynecologic Cytology Report ? Case: [id number] ? Authorizing Provider: ??Michaela Álvarez PA-C ?Collected: ? 02/20/2017 1610 ? First Screen: ?Dot Barriga ?Received: ?02/21/2017 1817 ? Specimen: ?[employer] ThinPrep Vial Screening, Cervical/Vaginal ? 03/06/2017 4:58 PM [facility] INTERPRETATION/ RESULT NEGATIVE FOR INTRAEPITHELIAL LESION OR MALIGNANCY (NIL) (none) 03/06/2017 4:58 PM [facility] IMEN ADEQUACY Satisfactory for evaluation Endocervical component present 03/06/2017 4:58 PM [facility] HPV REQUEST HPV and PAP 03/06/2017 4:58 PM [facility] Date of LMP 02/03/2017 03/06/2017 4:58 PM [facility] Last Pap Date 02/08/2017 03/06/2017 4:58 PM [facility] Last Pap Result UNS 7 4:58 PM [facility] Automated Review Successful 03/06/2017 4:58 PM [facility] Comment:Specimen processed s uccessfully by automated acid correction hand device, ThinPrep Imaging System, [employer] ANCILLARY TESTING [employer] HPV Ordered, Please see separate report 03/06/2017 4:58 PM [facility] Note The pap test is a screening technique, not a diagnostic procedure. ??It is used primarily to screen for squamous cancers and precursor lesions. ??Published studies have shown that it is subject to both false negative and false positive results. ??The pap test should not be used as the sole means to diagnose or exclude pre-malignant and malignant lesions. Interpreted at [facility] ([facility] Lab, [facility], [facility], [facility], [facility], [facility], [facility]) 03/06/2017 4:58 PM MANAGER ANALYTICAL [facility]AL [facility] Other (Cervical/Vagina l) 02/20/2017 4:10 PM MANAGER ANALYTICAL 02/21/2017 6:17 PM MANAGER ANALYTICAL Michaela Álvarez PA-C PATHOLOGY/CYTOLOGY [facility] [address] [place] [address], * ANTI HIV 1/2 (09/11/2006 10:59 AM CDT) ANTI HIV 1/2 Non-reacti ve [facility] Blood specimen (specimen) BLOOD SPECIMEN / Unknown 09/11/2006 10:59 AM CDT 09/11/2006 10:49 AM CDT Patricia Lo SEND OUTS [facility] [place]NAL ZIP [id number] [address] from Last 3 Months or Most Recently Relevant to Health Maintenance Advance Directives * Full Code (Latest Code Status on File) Date Activated Date Inactivated Comments 06/14/2019 10:41 PM 06/15/2019 11:37 PM * Full Code Date Activated Date Inactivated Comments 12/19/2006 10:23 AM 12/20/2006 12:27 PM Care Teams Plow Shaker Relationship Specialty Start Date End Date Wendi Goldman NP PCP - General Nurse Practitioner 11/20/19
== END 2023-11-21 08:32 | disposition home or self-care (01) ==
PROVIDERS: PCP Family Medicine; Visit Provider Family Medicine
DX: E11.65 Type 2 diabetes mellitus with hyperglycemia (principal); I10 Essential (primary) hypertension; Z79.84 Long term (current) use of oral hypoglycemic drugs; Z13.220 Encounter for screening for lipoid disorders
CPT/HCPCS: 80048; 80061; 84460

== ENCOUNTER 2024-01-28 08:00 | Outpatient (CLI) | payer BC, SELFPAY ==
--- OUTSIDE RECORDS SUMMARY | 2024-01-28 08:03 | XMS_ITS ---
Author Organization [facility] Address [address] [place] [address] Care Team Providers Care Federal Law Clerk Name Role Phone Unavailable Unavailable Unavailable Surgery Details Not on file Complications Check Surgery Details section. Procedure Estimated Blood Loss Check Surgery Details section. Procedure Findings Check Surgery Details section. Procedure Specimens Taken Check Surgery Details section.
--- OUTSIDE RECORDS SUMMARY | 2024-01-28 08:03 | XMS_ITS | Referral Summary ---
Author Organization [facility] Address [address] [place] [address] Care Team Providers Care Lithoduplicator Operator Name Role Phone Unavailable Primary Care Provider Unavailabl e Source Comments Patient records contain information from all sites at [facility]. For routine questions regarding patient records, call [phone] during business hours, M-F 8:00 AM - 5:00 PM Central Time. Record requests for emergency care only can be directed to [phone] at any time.[facility] Allergies No known active allergies Medications atorvastatin (LIPITOR) 10 mg tablet Take 10 mg by mouth daily. 0 Active amphetamine-dextr oamphetamine (ADDERALL XR) 30 mg 24 hr capsule Take 60 mg by mouth daily. 2 Active metFORMIN XR (GLUCOPHAGE-XR) 500 mg 24 hr tablet Take 2 tablets by mouth daily. 0 Active polyethylene glycol (MIRALAX) 17 gram/dose oral powder Take 17 g by mouth daily as needed for constipation. Dissolve each 17 g dose in 240 mLs (8 ounces) of beverage. Active clotrimazole-beta methasone (LOTRISONE) 1-0.05 % cream Twice A Day 5 Active Accu-Chek Softclix Lancets lancets TEST TWICE DAILY NEEDED 1 Active FLUoxetine (PROzac) 40 mg capsule Take 40 mg by mouth daily. 2 Active lisinopril-hydroC HLOROthiazide (PRINZIDE,ZESTORE TIC) 10-12.5 mg per tablet Take 1 tablet by mouth daily. 2 Active gabapentin (NEURONTIN) 100 mg capsule Take 1-3 capsule by mouth every night as directed 1 hr before bed for RLS 3 Active lamoTRIgine (LaMICtaL) 100 mg tabletIndications :[facility] (HCC) Take 1 tablet (100 mg total) by mouth 2 (two) times a day. AFTER COMPLETING 25 MG RX PER MED SCHEDULE, SWITCH TO 100 MG AND TAKE 1 TABLET TWICE DAILY 60 tablet 11 3 Active lamoTRIgine (LaMICtaL) 25 mg tabletIndications :Sp[facility] Neu[facility] (HCC) Take 2 tablets (50 mg total) by mouth 2 (two) times a day for 7 days, THEN 2 tablets (50 mg total) daily for 7 days. Then discontinue.. 42 tablet 3 Active Active Problems Problem Noted Date Diagnosed Date Spells Neurological 05/05/2020 Craniotomy Status Post 02/26/2020 Diabetes Mellitus Type 2 02/26/2020 Hyponatremia 02/26/2020 Mass Dura Brain 01/13/2020 Overview (01/13/2020): Added automatically from request for surgery [id number] Social History Tobacco Use Types Packs/Day Years [...] often do you attend chur ch or jainism services? 1 to 4 times per year 06/28/2022 Do you belong to any clubs o r organizations such as denominational groups, unions, fraternal or athletic groups, or [...] and heating? Not hard at all 06/28/2022 [facility] - Occupational Stress Questionnaire Answer Date [...] now)? No 06/28/2022 Nutrition Answer Date Recorded On average, how many serving s of [...] degree: occupational, technical, or vocational program 06/29/2020 Comments Unknown Sex and Gender Information Value Date Recorded Sex Assigned at Female 08/22/2021 9:24 PM CDT Legal Sex Female 8:26 AM CDT Gender Identity Female 01/20/2020 1:22 PM MEDICAL PATHOLOGIST Sexual Orientation Straight 01/20/2020 1: 22 PM MEDICAL PATHOLOGIST Last Filed Vital Signs Vital Sign Reading Time Taken Comments Blood Pressure 125/80 10/30/2022 8:14 AM CDT Pulse 87 10/30/2022 8:14 AM CDT Temperature 37.8 ??C (100 ??F) 03/30/2020 10:25 AM CS T Respiratory Rate 16 02/27/2020 7:00 AM MEDICAL PATHOLOGIST Oxygen Saturation 100% 02/27/2020 7:00 AM MEDICAL PATHOLOGIST Inhaled Oxygen Concentration - - Weight 105 kg (231 lb 0.7 oz) 06/29/2022 2:20 PM CDT Height 163.6 cm (5' 4.41) 06/29/2020 2:37 PM CD T Body Mass Index 39.16 06/29/2020 2:37 PM CDT Plan of Treatment Not on file Medical Devices Implanted Type Area Licensed Embalmer Supervisor Device Identifier Shelf Expiration Date Model / Serial / Lot Scrw Ti Sdr Lp 1.6x2.9x6 - [id number] Implanted:Qty: 1 on 02/24/2020 by Kaz Ceron M.B.B.S. at [facility] Hardware e.g. pins/screws/r ods Depuy Synthes [id number] / / Scrw Mdface Sdrl 1.5x2.9x4 - [id number] Implanted:Qty: 12 on 02/24/2020 by Kaz Ceron M.B.B.S. at [facility] Hardware e.g. pins/screws/r ods Depuy Synthes [id number] / / Plt L1 Neuro Cmf Cvr Bur 12 - [id number] Implanted:Qty: 1 on 02/24/2020 by Kaz Ceron M.B.B.S. at [facility] Hardware e.g. pins/screws/r ods Dep[employer] Synthes 421.525 / / Plt L1 Neuro Cmf Cvr Bur 17 - [id number] Implanted:Qty: 2 on 02/24/2020 by Kaz Ceron M.B.B.S. at [facility] Hardware e.g. pins/screws/r ods Depuy Synthes [id number] / / Procedures Procedure Name Priority Date/Time Associated Diagnosis Comments BASIC METABOLIC PANEL, S/P Routine 02/27/2020 6:18 AM MEDICAL PATHOLOGIST HEMOGLOBIN A1C, B Routine 02/23/2020 12: 33 PM MEDICAL PATHOLOGIST Mass Dura Brain from Last 3 Months or Most Recently Relevant to Health Maintenance Results * (ABNORMAL) Basic Metabolic Panel (02/27/2020 6:18 AM MEDICAL PATHOLOGIST) Potassium, P 4.0 3.6 - 5.2 mmol/L 02/27/2020 7:05 AM MEDICAL PATHOLOGIST MKTO Sodium, P 137 135 - 145 mmol/L 02/27/2020 7:05 AM MEDICAL PATHOLOGIST MKTO Chloride, P 104 98 - 107 mmol/L 02/27/2020 7:05 AM MEDICAL PATHOLOGIST MKTO Bicarbonate, P 24 22 - 29 mmol/L 02/27/2020 7:05 AM MEDICAL PATHOLOGIST MKTO Anion Gap, P 9 7 - 15 02/27/2020 7:05 AM MEDICAL PATHOLOGIST [facility] BUN (Blood Urea Nitrogen), P 16 6 - 21 mg/dL 02/27/2020 7:05 AM MEDICAL PATHOLOGIST MKTO Creatinine 0.77 0.59 - 1.04 mg/dL 02/27/2020 7:05 AM MEDICAL PATHOLOGIST MKTO eGFR-Black/Afri can Zambian >90 >=60 mL/min/BSA 02/27/2020 7:05 AM MEDICAL PATHOLOGIST MKTO Comment: ----ADDITIONAL INFORMATION---- Estimated GFR calculated using the 2009 CKD_EPI creatinine equation. eGFR Non-Black/Afric an Zambian >90 >=60 mL/min/BSA 02/27/2020 7:05 AM MEDICAL PATHOLOGIST MKTO Comment: ----ADDITIONAL INFORMATION---- Estimated GFR calculated using the 2009 CKD_EPI creatinine equation. Calcium, Total, P 7.9(L) 8.6 - 10.0 mg/dL 02/27/2020 7:05 AM MEDICAL PATHOLOGIST MKTO Glucose, P 165(H) 70 - 140 mg/dL 02/27/2020 7:05 AM MEDICAL PATHOLOGIST MKTO Blood (Blood, Venous) 02/27/2020 6:18 AM MEDICAL PATHOLOGIST 02/27/2020 6:42 AM MEDICAL PATHOLOGIST us Zaki Arrieta APRN C.N.P., M.S.N. LAB BLOOD ADD-ON Final Result [facility] [address] [place] [address], [facility] [place] [address] * (ABNORMAL) Hemoglobin A1c (02/23/2020 12:33 PM MEDICAL PATHOLOGIST) Hemoglobin A1c, B 6.5(H) 4.2 - 5.6 % 02/23/2020 12:59 PM MEDICAL PATHOLOGIST MKTO Comment: Hemoglobin A1c values greater than or equal to 6.5 percent are diagnostic for diabetes mellitus. ??Diagnosis should be confirmed by repeat testing. ??In diabetic patients, HbA1c goals should be discussed with healthcare provider. Blood (Blood, Venous) 02/23/2020 12:33 PM MEDICAL PATHOLOGIST 02/23/2020 12:36 PM MEDICAL PATHOLOGIST Kaz Colindres LAB BLOOD ADD-ON Final Result [facility] [address] [place] [address], [facility] [place] [address] [place] [address] from Last 3 Months or Most Recently Relevant to Health Maintenance [place] [address] Advance Directives For more information, please contact: [phone] * Full Code (Latest Code Status on File) Date Activated Date Inactivated Comments 02/24/2020 4:49 PM 02/27/2020 1:44 PM Question Answer Comments Full Code: Discussed
--- OUTSIDE RECORDS SUMMARY | 2024-01-28 08:03 | XMS_ITS | Clinical Summary ---
Author Organization [facility] Address [address] [place] [address] Care Team Providers Care Greenhouse Laborer Name Role Phone Unavailable Primary Care Provider Unavailabl e Source Comments Patient records contain information from all sites at [facility]. For routine questions regarding patient records, call [phone] during business hours, M-F 8:00 AM - 5:00 PM Central Time. Record requests for emergency care only can be directed to [phone] at any time.[facility] Allergies No known active allergies Medications atorvastatin [...] (01/13/2020): Added automatically from request for surgery [id number] Social History Tobacco Use Types Packs/Day Years [...] often do you attend chur ch or latter day services? 1 to 4 times per year 06/28/2022 Do you belong to any clubs o r organizations such as yarsani groups, unions, fraternal or athletic groups, or [...] and heating? Not hard at all 06/28/2022 [facility] - Occupational Stress [...] place to sleep or slept in a fpc (including now)? No 06/28/2022 Nutrition Answer Date [...] CDT Gender Identity Female 01/20/2020 1:22 PM NUMERICAL CONTROL PROGRAMMER Sexual Orientation Straight 01/20/2020 1: 22 PM NUMERICAL CONTROL PROGRAMMER Last Filed Vital Signs Vital Sign Reading Time Taken Comments Blood Pressure 125/80 10/30/2022 8:14 AM CDT Pulse 87 10/30/2022 8:14 AM CDT Temperature 37.8 ??C (100 ??F) 03/30/2020 10:25 AM CS T Respiratory Rate 16 02/27/2020 7:00 AM NUMERICAL CONTROL PROGRAMMER Oxygen Saturation 100% 02/27/2020 7:00 AM NUMERICAL CONTROL PROGRAMMER Inhaled Oxygen Concentration - - Weight 105 kg (231 lb 0.7 oz) 06/29/2022 2:20 PM CDT Height 163.6 cm (5' 4.41) 06/29/2020 2:37 PM CD T Body Mass Index 39.16 06/29/2020 2:37 PM CDT Plan of Treatment Health Maintenance Due Date Last Done Comments CT Colonography 1976 Cologuard 1976 Colonoscopy 1976 Colorectal Cancer Screening 1976 Diabetic Office Visit with Foot Exam 1976 Dilated Eye Exam 1976 FIT 1976 HIV Screening 1976 Hepatitis C Screening 1976 Mammogram 1976 Urine Albumin 1976 Pneumococcal vaccine (0-64 years) (1 of 2 - PCV) 01/10/1982 Hepatitis B Vaccines (1 of 3 - 19+ 3-dose series) 01/10/1995 Cervical/Vaginal Cancer Screening 02/26/2015 02/27/2012 Hemoglobin A1C 08/23/2020 02/23/2020, 06/14/2019 Creatinine Level (Kidney Function Test) 02/26/2021 02/27/2020, 02/26/2020, 02/25/2020, Additional history exists Potassium Level 02/26/2021 02/27/2020, 02/09, 02/25/2020, Additional history exists Sodium Level 02/26/2021 02/27/2020, 02/09, 02/26/2020, Additional history exists Depression Screening (Annual PHQ-2) 03/12/2023 Office Visit for Blood Pressure Check / Re-check 10/31/2023 10/30/2022 COVID-19 Vaccine ( season) 2023 03/21/2021, 05/19/2020, 04/21/2020 Influenza Vaccine (#1) 2023 01/29/2001 Lipid (Cholesterol) Screening 06/14/2024 06/15/2019 DTaP,Tdap,and Td Vaccines (8 - Td or Tdap) 08/07/2029 08/08/2019, 01/13/2008, 03/24/1981, Additional history exists IPV Vaccines Aged Out No longer eligi ble based on patient's age to complete this topic Medical Devices Implanted Type Area Vest Baster Device Identifier Shelf Expiration Date Model / Serial / Lot Scrw Ti Sdr Lp 1.6x2.9x6 - [id number] Implanted:Qty: 1 on 02/24/2020 by Kaz Ceron M.B.B.S. at [facility] Hardware e.g. pins/screws/r ods Depuy Synthes [id number] / / Scrw Mdface Sdrl 1.5x2.9x4 - [id number] Implanted:Qty: 12 on 02/24/2020 by Kaz Ceron M.B.B.S. at [facility] Hardware e.g. pins/screws/r ods Depuy Synthes [id number] / / Plt L1 Neuro Cmf Cvr Bur 12 - [id number] Implanted:Qty: 1 on 02/24/2020 by Kaz Ceron M.B.B.S. at [facility] Hardware e.g. pins/screws/r ods Depuy Synthes [id number] / / Plt L1 Neuro Cmf Cvr Bur 17 - [id number] Implanted:Qty: 2 on 02/24/2020 by Kaz Ceron M.B.B.S. at [facility] Hardware e.g. pins/screws/r ods Depuy Synthes [id number] / / Procedures Procedure Name Priority Date/Time Associated Diagnosis Comments BASIC METABOLIC PANEL, S/P Routine 02/27/2020 6:18 AM NUMERICAL CONTROL PROGRAMMER HEMOGLOBIN A1C, B Routine 02/23/2020 12: 33 PM NUMERICAL CONTROL PROGRAMMER Mass Dura Brain from Last 3 Months or Most Recently Relevant to Health Maintenance Results * (ABNORMAL) Basic Metabolic Panel (02/27/2020 6:18 AM NUMERICAL CONTROL PROGRAMMER) Potassium, P 4.0 3.6 - 5.2 mmol/L 02/27/2020 7:05 AM NUMERICAL CONTROL PROGRAMMER [facility] Sodium, P 137 135 - 145 mmol/L 02/27/2020 7:05 AM NUMERICAL CONTROL PROGRAMMER [facility] Chloride, P 104 98 - 107 mmol/L 02/27/2020 7:05 AM NUMERICAL CONTROL PROGRAMMER [facility] Bicarbonate, P 24 22 - 29 mmol/L 02/27/2020 7:05 AM NUMERICAL CONTROL PROGRAMMER [facility] Anion Gap, P 9 7 - 15 02/27/2020 7:05 AM NUMERICAL CONTROL PROGRAMMER [facility] BUN (Blood Urea Nitrogen), P 16 6 - 21 mg/dL 02/27/2020 7:05 AM NUMERICAL CONTROL PROGRAMMER [facility] Creatinine 0.77 0.59 - 1.04 mg/dL 02/27/2020 7:05 AM NUMERICAL CONTROL PROGRAMMER [facility] eGFR-Black/Afri can Mosotho >90 >=60 mL/min/BSA 02/27/2020 7:05 AM NUMERICAL CONTROL PROGRAMMER [facility] Comment: ----ADDITIONAL INFORMATION---- Estimated GFR calculated using the 2009 CKD_EPI creatinine equation. eGFR Non-Black/Afric an Mosotho >90 >=60 mL/min/BSA 02/27/2020 7:05 AM NUMERICAL CONTROL PROGRAMMER [facility] Comment: ----ADDITIONAL INFORMATION---- Estimated GFR calculated using the 2009 CKD_EPI creatinine equation. Calcium, Total, P 7.9(L) 8.6 - 10.0 mg/dL 02/27/2020 7:05 AM NUMERICAL CONTROL PROGRAMMER [facility] Glucose, P 165(H) 70 - 140 mg/dL 02/27/2020 7:05 AM NUMERICAL CONTROL PROGRAMMER [facility] Blood (Blood, Venous) 02/27/2020 6:18 AM NUMERICAL CONTROL PROGRAMMER 02/27/2020 6:42 AM NUMERICAL CONTROL PROGRAMMER Zaki Arrieta APRN, C.N.P., M.S.N. LAB BLOOD ADD-ON Final Result [facility] [address] [place] [address], [place] [address] * (ABNORMAL) Hemoglobin A1c (02/23/2020 12:33 PM NUMERICAL CONTROL PROGRAMMER) Hemoglobin A1c, B 6.5(H) 4.2 - 5.6 % 02/23/2020 12:59 PM NUMERICAL CONTROL PROGRAMMER [facility] Comment: Hemoglobin A1c values greater than or equal to 6.5 percent are diagnostic for diabetes mellitus. ??Diagnosis should be confirmed by repeat testing. ??In diabetic patients, HbA1c goals should be discussed with healthcare provider. Blood (Blood, Venous) 02/23/2020 12:33 PM NUMERICAL CONTROL PROGRAMMER 02/23/2020 12:36 PM NUMERICAL CONTROL PROGRAMMER Kaz Colindres LAB BLOOD ADD-ON Final Result [facility] [address] [place] [address], [place] [facility] [place] [address] [place] [address] from Last 3 Months or Most Recently Relevant to Health Maintenance Insurance MEDICA Advance Directives For more information, please contact: [phone] * Full Code (Latest Code Status on File) Date Activated Date Inactivated Comments 02/24/2020 4:49 PM 02/27/2020 1:44 PM Question Answer Comments Full Code: Discussed
--- OUTSIDE RECORDS SUMMARY | 2024-01-28 08:03 | XMS_ITS | Clinical Summary ---
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 Primary Care Provider Unava ilable Allergies No [...] F Vag Livin g Cory a Delivery Location:[facility] Comments:uncomplicated 004 Term 38w 0d 3.77 kg (8 lb 5 oz) M Vag None Livin g Harley Delivery Location:[facility] Comments:some shoulder dystocia 008 Term 40w [...] PANEL Early AM 06/15/2019 6:51 AM CDT SORTER UPHOLSTERY PARTS THIN PREP PAP SCREEN IMAGED Routine 02/20/2017 4:10 PM GLOBAL CATEGORY MANAGER ANTI HIV 1/2 Routine 09/11/2006 10:59 AM CDT Supervision Of Other Normal from Last 3 Months or Most Recently Relevant to Health Maintenance Results * (ABNORMAL) LIPID PANEL (06/15/2019 6:51 AM CDT) CHOLESTEROL,TOTAL 178 100 - 199 mg/dL 06/15/2019 7:20 AM CDT [facility] TRIGLYCERIDES 165(H) <150 mg/dL 06/15/2019 7:20 AM CDT [facility] HDL CHOLESTEROL 35(L) >40 mg/dL 0 7:20 AM CDT [facility] NON-HDL CHOLESTEROL 143 <145 mg/dl 06/15/2019 7:20 AM CDT [facility] CHOL/HDL RATIO 5.09(H) <4.50 06/15/2019 7:20 AM CDT [facility] LDL CHOLESTEROL 110 <=130 mg/dL 06/15/2019 7:20 AM CDT [facility] PROVIDER ORDERED STATUS RANDOM 06/15/2019 7:20 AM CDT [facility] Blood BLOOD SPECIMEN / Unknown Venipuncture / Unknown 06/15/2019 6:51 AM CDT 06/15/2019 6:58 AM CDT Rajendra Hernandez DO CHEMISTRY [facility] [address] [place] [address], * SORTER UPHOLSTERY PARTS THIN PREP PAP SCREEN IMAGED (02/20/2017 4:10 PM GLOBAL CATEGORY MANAGER) Case Report Gynecologic Cytology Report ? Case: [id number] ? Authorizing Provider: ??Michaela Álvarez PA-C ?Collected: ? 02/20/2017 1610 ? First Screen: ?Dot Barriga ?Received: ?02/21/2017 1817 ? Specimen: ?SORTER UPHOLSTERY PARTS ThinPrep Vial Screening, Cervical/Vaginal ? 03/06/2017 4:58 PM [facility] INTERPRETATION/ RESULT NEGATIVE FOR INTRAEPITHELIAL LESION OR MALIGNANCY (NIL) (none) 03/06/2017 4:58 PM [facility] IMEN ADEQUACY Satisfactory for evaluation Endocervical component present 03/06/2017 4:58 PM [facility] HPV REQUEST HPV and PAP 03/06/2017 4:58 PM [facility] Date of LMP 02/03/2017 03/06/2017 4:58 PM [facility] Last Pap Date 02/08/2017 03/06/2017 4:58 PM [facility] Last Pap Result UNS 7 4:58 PM [facility] Automated Review Successful 03/06/2017 4:58 PM [facility] Comment:Specimen processed s uccessfully by automated net technical architect device, ThinPrep Imaging System, [employer] ANCILLARY TESTING SORTER UPHOLSTERY PARTS HPV Ordered, Please see separate report 03/06/2017 4:58 PM [facility] Note The pap test is a screening technique, not a diagnostic procedure. ??It is used primarily to screen for squamous cancers and precursor lesions. ??Published studies have shown that it is subject to both false negative and false positive results. ??The pap test should not be used as the sole means to diagnose or exclude pre-malignant and malignant lesions. Interpreted at [facility] (Central Lab, [facility], [facility], [facility], [facility], [facility], [facility]) 03/06/2017 4:58 PM GLOBAL CATEGORY MANAGER [facility]-C ENTRAL LABORATORY Other (Cervical/Vagina l) 02/20/2017 4:10 PM GLOBAL CATEGORY MANAGER 02/21/2017 6:17 PM GLOBAL CATEGORY MANAGER Michaela Álvarez PA-C PATHOLOGY/CYTOLOGY [facility] LAB[facility]ATORY [address] [place] [address], * ANTI HIV 1/2 (09/11/2006 10:59 AM CDT) ANTI HIV 1/2 Non-reacti ve [facility] Blood specimen (specimen) BLOOD SPECIMEN / Unknown 09/11/2006 10:59 AM CDT 09/11/2006 10:49 AM CDT Patricia Lo SEND OUTS [facility] [place] ZIP [id number] [address] from Last 3 Months or Most Recently Relevant to Health Maintenance Advance Directives * Full Code (Latest Code Status on File) Date Activated Date Inactivated Comments 06/14/2019 10:41 PM 06/15/2019 11:37 PM * Full Code Date Activated Date Inactivated Comments 12/19/2006 10:23 AM 12/20/2006 12:27 PM Care Teams Shank Breaker Relationship Specialty Start Date End Date Wendi Goldman NP PCP - General Nurse Practitioner 11/20/19
--- NOTE | 2024-01-28 08:15 | CRLHL7_ITS ---
For Patients: As a result of the Century Cures Act, medical imaging exams and procedure reports are released immediately into your electronic medical record. You may view this report before your referring provider. If you have questions, please contact your health care provider. BILATERAL SCREENING MAMMOGRAM WITH COMPUTER-AIDED DETECTION AND TOMOSYNTHESIS TECHNIQUE: CC and MLO views were obtained. These mammographic images have been obtained using full-field digital technique. These mammographic images were interpreted with the benefit of computer-aided detection. Breast Tomosynthesis was used in this interpretation. COMPARISON FILM: 05/11/20, 01/20/19, 02/23/17. FINDINGS: There are scattered areas of fibroglandular density. IMPRESSION: There is no radiographic evidence for malignancy. ASSESSMENT: BI-RADS Category 1: Negative RECOMMENDATION: Routine screening mammogram in 1 year. A lay language report of this examination will be provided to the patient. Madan Aguilar M.D. Diagnostic Radiologist [email or web address] SP/Dictated by: Madan Aguilar MD @ 01/28/2024 9:56:00 AM (Electronically Signed)
== END 2024-01-28 08:01 | disposition home or self-care (01) ==
LOC: MAMMO 08:01
PROVIDERS: PCP Family Medicine; Visit Provider Family Medicine
DX: Z12.31 Encounter for screening mammogram for malignant neoplasm of breast (principal)
CPT/HCPCS: 77063; 77067

== ENCOUNTER 2024-05-05 13:34 | Observation (INO) | payer BC, SELFPAY ==
[2024-05-05] VITALS (48 sets, daily range): BP systolic 91–124; BP diastolic 49–73; PULSE 64–84; RESP 12–97; TEMP 36.6–36.8; O2SAT 94–100; BMI 32.4; BMI 34.4
--- OUTSIDE RECORDS SUMMARY | 2024-05-05 13:36 | XMS_ITS | Clinical Summary ---
Author Organization [facility] Address [address] [place] [address] Care Team Providers Care Fretted Instruments Inspector Name Role Phone Wendi Goldman NP Primary Care Provider [phone] Allergies No known active allergies Medications dextroamphetami ne-amphetamine (ADDERALL XR) 30 mg Extended-Releas e capsuleIndicati ons:Narcolepsy Take 60 mg by mouth once daily 0 12/08/2011 Active metFORMIN (GLUCOPHAGE XR) 500 mg Extended-Releas e tablet Take 2 tablets by mouth once daily. 05/12/2019 Active lisinopril-hydr ochlorothiazide , 20-25 mg, (PRINZIDE, ZESTORETIC) 20-25 mg per tablet Take 1 tablet by mouth once daily. 05/06/2019 Active aspirin chewable 81 mg chewable tabletIndicatio ns:3rd cranial nerve palsy, left Take 1 tablet by mouth once daily with a meal. 60 tablet 06/15/2019 8:37 PM CDT 06/15/2019 Active atorvastatin (LIPITOR) 10 mg tabletIndicatio ns:3rd cranial nerve palsy, left Take 1 tablet by mouth once daily. 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 Not on file Not on file Not on file Not on file Not on file Not on file Not on file Obstetrics History Para Term AB IAB SAB Ectopic Multiple Livin g Live Births 3 3 3 0 0 0 0 0 3 3 Date Outcome GA Total Labor Labor/2nd/3rd Weight Sex Type Anes PTL Maryellen A1 A5 Name Clin 001 Term 37w 0d 3.2 kg (7 lb 1 oz) F Vag Livin g Mariss a Delivery Location:[facility] Comments:uncomplicated 004 Term 38w 0d 3.77 kg (8 lb 5 oz) M Vag None Livin g Harley Delivery Location:[facility] Comments:some shoulder dystocia 008 Term 40w 0d M Vag Livin g Yousuf Last Filed Vital Signs Vital Sign Reading Time Taken Comments Blood Pressure 106/63 06/15/2019 3:54 PM CDT Pulse 87 06/15/2019 4:18 PM CDT Temperature 36.9 C (98.5 F) 06/15/2019 3:54 PM CDT Respiratory Rate 18 06/15/2019 3:54 PM CDT [...] for age 45-75 01/10/2021 COVID-19 vaccine series (2023- season) 2023 Influenza for age 9-49 11/11/2023 Lipids for age 45-75 06/14/2024 06/15/2019, 12/08/2011, 10/18/2010, Additional history exists HIV for age 15-65 Completed 09/11/2006 Tdap Completed 01/13/2008 Pneumococcal series for age 6-49 Aged Out No longer eligible based on patient's age to complete this topic Procedures Procedure Name Priority Date/Time Associated Diagnosis Comments LIPID PANEL Early AM 06/15/2019 6:51 AM CDT DIE TESTER THIN PREP PAP SCREEN IMAGED Routine 02/20/2017 4:10 PM SALESPERSON PARTS ANTI HIV 1/2 Routine 09/11/2006 10:59 AM CDT Supervision Of Other Normal from Last 3 Months or Most Recently Relevant to Health Maintenance Results * (ABNORMAL) LIPID PANEL (06/15/2019 6:51 AM CDT) CHOLESTEROL,TOTAL 178 100 - 199 mg/dL 06/15/2019 7:20 AM CDT [facility] TRIGLYCERIDES 165(H) <150 mg/dL 06/15/2019 7:20 AM CDT [facility] HDL CHOLESTEROL 35(L) >40 mg/dL 0 7:20 AM CDT [facility] NON-HDL CHOLESTEROL 143 <145 mg/dl 06/15/2019 7:20 AM CDT [facility] CHOL/HDL RATIO 5.09(H) <4.50 06/15/2019 7:20 AM CDT [facility] LDL CHOLESTEROL 110 <=130 mg/dL 06/15/2019 7:20 AM CDT [facility] PROVIDER ORDERED STATUS RANDOM 06/15/2019 7:20 AM CDT [facility] Blood BLOOD SPECIMEN / Unknown Venipuncture / Unknown 06/15/2019 6:51 AM CDT 06/15/2019 6:58 AM CDT Rajendra Hernandez DO CHEMISTRY Final R [facility] [address] [place] [address], [place] * DIE TESTER THIN PREP PAP SCREEN IMAGED (02/20/2017 4:10 PM SALESPERSON PARTS) Case Report Gynecologic Cytology Report Case: [id number] Authorizing Provider: Michaela Álvarez PA-C Collected: 02/20/2017 1610 First Screen: Dot Barriga Received: 02/21/2017 1817 Specimen: DIE TESTER ThinPrep Vial Screening, Cervical/Vaginal 03/06/2017 4:58 PM SALESPERSON PARTS [facility] INTERPRETATION/ RESULT NEGATIVE FOR INTRAEPITHELIAL LESION OR MALIGNANCY (NIL) (none) 03/06/2017 4:58 PM SALESPERSON PARTS [facility] IMEN ADEQUACY Satisfactory for evaluation Endocervical component present 03/06/2017 4:58 PM SALESPERSON PARTS [facility] HPV REQUEST HPV and PAP 03/06/2017 4:58 PM SALESPERSON PARTS [facility] Date of LMP 02/03/2017 03/06/2017 4:58 PM SALESPERSON PARTS [facility] Last Pap Date 02/08/2017 03/06/2017 4:58 PM SALESPERSON PARTS [facility] Last Pap Result UNS 7 4:58 PM SALESPERSON PARTS [facility] Automated Review Successful 03/06/2017 4:58 PM SALESPERSON PARTS [facility] Comment:Specimen processed s uccessfully by automated search planner device, ThinPrep Imaging System, [employer] ANCILLARY TESTING DIE TESTER HPV Ordered, Please see separate report 03/06/2017 4:58 PM SALESPERSON PARTS [facility] Note The pap test is a screening technique, not a diagnostic procedure. It is used primarily to screen for squamous cancers and precursor lesions. Published studies have shown that it is subject to both false negative and false positive results. The pap test should not be used as the sole means to diagnose or exclude pre-malignant and malignant lesions. Interpreted at [facility] (Central Lab, [facility], [facility], [facility], [facility], [facility], [facility]) 03/06/2017 4:58 PM SALESPERSON PARTS [facility] ENTRAL LABORATORY Other (Cervical/Vagina l) 02/20/2017 4:10 PM SALESPERSON PARTS 02/21/2017 6:17 PM SALESPERSON PARTS us June Lloyd Álvarez PA-C PATHOLOGY/CYTOLOGY Final R esult [facility] LAB[facility] [address] [place] [address], [place] * ANTI HIV 1/2 (09/11/2006 10:59 AM CDT) ANTI HIV 1/2 Non-reacti ve [facility] Blood specimen (specimen) BLOOD SPECIMEN / Unknown 09/11/2006 10:59 AM CDT 09/11/2006 10:49 AM CDT us Patricia Lo SEND OUTS Final R esult [facility] [place]NAL ZIP [phone] [address] from Last 3 Months or Most Recently Relevant to Health Maintenance Insurance MEDICA CHOICE MEDICA PASSPORT MEDICA PASSPORT MEDICA PASSPORT MEDICA PASSPORT Member Subscriber Plan / Payer (Ef fective 2019-Present) Name:Elieser Colónlisset Relation to Subscriber:Self Name:Eliceo Colón Payer ID:[id number] (NAIC) Type:Not on file Address: [place] [phone] MEDICA PASSPORT Advance Directives * Full Code (Latest Code Status on File) Date Activated Date Inactivated Comments 06/14/2019 10:41 PM 06/15/2019 11:37 PM * Full Code Date Activated Date Inactivated Comments 12/19/2006 10:23 AM 12/20/2006 12:27 PM Care Teams Fretted Instruments Inspector Relationship Specialty Start Date End Date Wendi Goldman NP PCP - General Nurse Practitioner 11/20/19
--- OUTSIDE RECORDS SUMMARY | 2024-05-05 13:36 | XMS_ITS | Clinical Summary ---
Author Organization [facility] Address [address] [place] [address] Care Team Providers Care Flying Ii Instructor Name Role Phone Unavailable Primary Care Provider Unavailabl e Source Comments Patient records contain information from all sites at [facility]. For routine questions regarding patient records, call [phone] during business hours, M-F 8:00 AM - 5:00 PM Central Time. Record requests for emergency care only can be directed to [phone] at any time.[facility] Allergies No known active allergies Medications atorvastatin [...] (01/13/2020): Added automatically from request for surgery [id number] Social History Tobacco Use Types Packs/Day Years [...] often do you attend chur ch or judaism services? 1 to 4 times per year 06/28/2022 Do you belong to any clubs o r organizations such as mormon groups, unions, fraternal or athletic groups, or [...] and heating? Not hard at all 06/28/2022 [facility] - Occupational [...] place to sleep or slept in a senior care (including now)? No 06/28/2022 Nutrition Answer Date [...] CDT Gender Identity Female 01/20/2020 1:22 PM REFUELING RAMP ATTENDANT Sexual Orientation Straight 01/20/2020 1: 22 PM REFUELING RAMP ATTENDANT Last Filed Vital Signs Vital Sign Reading Time Taken Comments Blood Pressure 125/80 10/30/2022 8:14 AM CDT Pulse 87 10/30/2022 8:14 AM CDT Temperature 37.8 C (100 F) 03/30/2020 10:25 AM REFUELING RAMP ATTENDANT Respiratory Rate 16 02/27/2020 7:00 AM REFUELING RAMP ATTENDANT Oxygen Saturation 100% 02/27/2020 7:00 AM REFUELING RAMP ATTENDANT Inhaled Oxygen Concentration - - Weight 105 [...] Screening 1976 Mammogram 1976 Urine Albumin 1976 Hepatitis B Vaccines (1 of 3 - 19+ 3-dose series) 01/10/1995 Pneumococcal vaccine (0-49 years) (1 of 2 - PCV) 01/10/1995 Cervical/Vaginal Cancer Screening 02/26/2015 02/27/2012 Hemoglobin A1C 08/23/2020 02/23/2020, 06/14/2019 Creatinine Level (Kidney Function Test) 02/26/2021 02/27/2020, 02/26/2020, 02/25/2020, Additional history exists Potassium Level 02/26/2021 02/27/2020, 02/09, 02/25/2020, Additional history exists Sodium Level 02/26/2021 02/27/2020, 02/09, 02/26/2020, Additional history exists Office Visit for Blood Pressure Check / Re-check 10/31/2023 10/30/2022 COVID-19 Vaccine ( season) 2023 03/21/2021, 05/19/2020, 04/21/2020 Influenza Vaccine (#1) 2023 01/29/2001 Depression Screening (Annual PHQ-2) 03/12/2024 Lipid (Cholesterol) Screening 06/14/2024 06/15/2019 DTaP,Tdap,and Td Vaccines (8 - Td or Tdap) 08/07/2029 08/08/2019, 01/13/2008, 03/24/1981, Additional history exists IPV Vaccines Aged Out No longer eligi ble based on patient's age to complete this topic Medical Devices Implanted Type Area Inside Account Representative Device Identifier Shelf Expiration Date Model / Serial / Lot Scrw Ti Sdr Lp 1.6x2.9x6 - [id number] Implanted:Qty: 1 on 02/24/2020 by Kaz Ceron M.B.B.S. at [facility] Hardware e.g. pins/screws/r ods Depuy Synthes [id number] / / Scrw Mdface Sdrl 1.5x2.9x4 - [id number] Implanted:Qty: 12 on 02/24/2020 by Kaz Ceron M.B.B.S. at [facility] Hardware e.g. pins/screws/r ods [employer] Synthes [id number] / / Plt L1 Neuro Cmf Cvr Bur 12 - [id number] Implanted:Qty: 1 on 02/24/2020 by Kaz Ceron M.B.B.S. at [facility] Hardware e.g. pins/screws/r ods Dep[employer] Synthes [id number] / / Plt L1 Neuro Cmf Cvr Bur 17 - [id number] Implanted:Qty: 2 on 02/24/2020 by Kaz Ceron M.B.B.S. at [facility] Hardware e.g. pins/screws/r ods [employer] Synthes [id number] / / Procedures Procedure Name Priority Date/Time Associated Diagnosis Comments BASIC METABOLIC PANEL, S/P Routine 02/27/2020 6:18 AM REFUELING RAMP ATTENDANT HEMOGLOBIN A1C, B Routine 02/23/2020 12: 33 PM REFUELING RAMP ATTENDANT Mass Dura Brain from Last 3 Months or Most Recently Relevant to Health Maintenance Results * (ABNORMAL) Basic Metabolic Panel (02/27/2020 6:18 AM REFUELING RAMP ATTENDANT) Potassium, P 4.0 3.6 - 5.2 mmol/L 02/27/2020 7:05 AM REFUELING RAMP ATTENDANT MKTO Sodium, P 137 135 - 145 mmol/L 02/27/2020 7:05 AM REFUELING RAMP ATTENDANT MKTO Chloride, P 104 98 - 107 mmol/L 02/27/2020 7:05 AM REFUELING RAMP ATTENDANT MKTO Bicarbonate, P 24 22 - 29 mmol/L 02/27/2020 7:05 AM REFUELING RAMP ATTENDANT MKTO Anion Gap, P 9 7 - 15 02/27/2020 7:05 AM REFUELING RAMP ATTENDANT MKTO BUN (Blood Urea Nitrogen), P 16 6 - 21 mg/dL 02/27/2020 7:05 AM REFUELING RAMP ATTENDANT MKTO Creatinine 0.77 0.59 - 1.04 mg/dL 02/27/2020 7:05 AM REFUELING RAMP ATTENDANT MKTO eGFR-Black/Afri can Citizen Of [place] >90 >=60 mL/min/BSA 02/27/2020 7:05 AM REFUELING RAMP ATTENDANT MKTO Comment: ----ADDITIONAL INFORMATION---- Estimated GFR calculated using the 2009 CKD_EPI creatinine equation. eGFR Non-Black/Afric an Citizen Of [place] >90 >=60 mL/min/BSA 02/27/2020 7:05 AM REFUELING RAMP ATTENDANT MKTO Comment: ----ADDITIONAL INFORMATION---- Estimated GFR calculated using the 2009 CKD_EPI creatinine equation. Calcium, Total, P 7.9(L) 8.6 - 10.0 mg/dL 02/27/2020 7:05 AM REFUELING RAMP ATTENDANT MKTO Glucose, P 165(H) 70 - 140 mg/dL 02/27/2020 7:05 AM REFUELING RAMP ATTENDANT TO Blood (Blood, Venous) 02/27/2020 6:18 AM REFUELING RAMP ATTENDANT 02/27/2020 6:42 AM REFUELING RAMP ATTENDANT Zaki Arrieta APRN C.N.P., M.S.N. LAB BLOOD ADD-ON Final Result [facility] [address] [place] [address], [place] [address] * (ABNORMAL) Hemoglobin A1c (02/23/2020 12:33 PM REFUELING RAMP ATTENDANT) Hemoglobin A1c, B 6.5(H) 4.2 - 5.6 % 02/23/2020 12:59 PM REFUELING RAMP ATTENDANT MKTO Comment: Hemoglobin A1c values greater than or equal to 6.5 percent are diagnostic for diabetes mellitus. Diagnosis should be confirmed by repeat testing. In diabetic patients, HbA1c goals should be discussed with healthcare provider. Blood (Blood, Venous) 02/23/2020 12:33 PM REFUELING RAMP ATTENDANT 02/23/2020 12:36 PM REFUELING RAMP ATTENDANT Kaz Colindres LAB BLOOD ADD-ON Final Result [facility] [address] [place] [address], [place] MKTO [facility] [place] [address] [place] [address] from Last 3 Months or Most Recently Relevant to Health Maintenance Insurance MEDICA Advance Directives For more information, please contact: [phone] * Full Code (Latest Code Status on File) Date Activated Date Inactivated Comments 02/24/2020 4:49 PM 02/27/2020 1:44 PM Question Answer Comments Full Code: Discussed
--- NOTE | 2024-05-05 14:21 | CRLHL7_ITS ---
For Patients: As a result of the Century Cures Act, medical imaging exams and procedure reports are released immediately into your electronic medical record. You may view this report before your referring provider. If you have questions, please contact your health care provider. INDICATION: Headache. Vertigo. TECHNIQUE: Noncontrast CT images of the brain. COMPARISON: None. FINDINGS: Postsurgical changes of remote left frontotemporoparietal craniotomy. The ventricles and sulci are within normal limits for patient age. No mass effect or midline shift. The naik white differentiation is maintained. No acute intracranial hemorrhage or pathologic extra-axial fluid collection. The globes are symmetric. No calvarial fracture. The paranasal sinuses and mastoid air cells are clear. IMPRESSION: 1. No acute intracranial hemorrhage or mass effect. 2. Postsurgical changes of remote left frontotemporoparietal craniotomy. Please note that all CT scans at this facility use dose modulation, iterative reconstruction, and/or weight-based dosing when appropriate to reduce radiation dose to as low as reasonably achievable. Dictated by Baudilio Fitzpatrick MD @ 05/05/2024 2:32:40 PM (Electronically Signed)
--- NOTE | 2024-05-05 14:21 | ED.DIZZY ---
HPI - Dizziness General Time Seen by Provider: 14:21 Date Seen: 05/05/24 Chief Complaint: Dizziness/Vertigo Stated Complaint: Vertigo, nausea Time Seen by Provider: 05/05/24 14:20 Source: patient, family and RN notes reviewed Mode of arrival: ambulatory Limitations: no limitations History of Present Illness HPI Narrative: Patient is a very pleasant 49-year-old female with a history of brain tumor 5 years ago with stroke, type 2 diabetes, hypertension in history of migraines who comes to the emergency room for evaluation regarding dizziness. Patient noted not feeling very well last night before bedtime. She and her went to bed early. At 0300 hours she awoke with dizziness and the room spinning along with a frontal headache. This is continued and she now arrives at the ED almost 12 hours since symptom discover E. she has no visual changes. She does have nausea. She feels better when her eyes are closed. She has no numbness or tingling of the extremities. Denies any possibility of . According to her records this was a benign tumor that was removed. Related Data Home Medications ?Medication ?Instructions ?Recorded ?Confirmed blood-glucose meter (OneTouch 10/31/21 01/15/24 Ultra2 Meter) dextroamphetamine-amphetamine ER 60 mg PO QDAY 03/10/22 01/15/24 30 mg 24hr capsule,extend release (Adderall XR) blood sugar diagnostic (Oneuch 11/21/23 01/15/24 Ultra Test strips) Previous Rx's ?Medication ?Instructions ?Recorded lancets (OneTouch UltraSoft #100 ea 03/10/22 Lancets) sennosides 8.6 mg tablet (senna) 8.6 mg PO QDAY PRN constipation 12/01/22 #30 tabs glimepiride 4 mg tablet 4 mg PO QAM #90 tabs 01/30/23 Blood Glucose Meter #1 ea 11/21/23 Diabetic Test Strips #100 ea 11/21/23 metformin 500 mg tablet,extended 2,000 mg (4 x 500 mg) PO QDAY #360 01/31/24 release 24 hr tabs atorvastatin 10 mg tablet (Lipitor) 10 mg PO QPM #90 tabs 03/04/24 lisinopril 10 1 tab PO QDAY #90 tabs 03/04/24 mg-hydrochlorothiazide 12.5 mg tablet Allergies Allergy/AdvReac Type Severity Reaction Status Date / Time No Known Drug Allergies Allergy Verified 01/15/24 16:31 Review of Systems Status of ROS: Reports: 10 or more systems reviewed and unremarkable except as noted in History and below Const: Denies: fever or chills Eyes: Denies: change in vision ENMT: Denies: throat pain, neck pain or nasal congestion Cardio: Denies: chest pain or shortness of breath with exertion Resp: Denies: shortness of breath or cough GI: Reports: nausea and vomiting; Denies: abdominal pain or diarrhea : Denies: painful urination Musculo: Denies: neck pain Neuro: Reports: headache (Frontal); Denies: numbness in extremities PFSH PFS Medical History Influenza B ?J10.1 - Influenza due to other identified influenza virus with other respiratory manifestations (ICD-10) Type 2 diabetes mellitus, without long-term current use of insulin ?E11.9 - Type 2 diabetes mellitus without complications (ICD-10) Meningioma ?D32.9 - Benign neoplasm of meninges, unspecified (ICD-10) Uterine leiomyoma ?D25.9 - Leiomyoma of uterus, unspecified (ICD-10) Panic attack ?F41.0 - Panic disorder [episodic paroxysmal anxiety] (ICD-10) History of abnormal cervical Papanicolaou smear (2008) ?Z87.42 - Personal history of other diseases of the female genital tract (ICD-10) Major depression ?F32.9 - Major depressive disorder, single episode, unspecified (ICD-10) H/O benign neoplasm of craniopharyngeal duct ?Z86.018 - Personal history of other benign neoplasm (ICD-10) Heavy menstrual bleeding ?N92.0 - Excessive and frequent menstruation with regular cycle (ICD-10) HPV in female ?B97.7 - Papillomavirus as the cause of diseases classified elsewhere (ICD-10) Surgical History Status post abdominal hysterectomy (11/14/22) ?Z90.710 - Acquired absence of both cervix and uterus (ICD-10) H/O craniotomy (2019) ?Z98.890 - Other specified postprocedural states (ICD-10) H/O colposcopy with cervical biopsy ?Z98.890 - Other specified postprocedural states (ICD-10) H/O myomectomy ?Z98.890 - Other specified postprocedural states (ICD-10) History of tubal ligation ?Z98.51 - Tubal ligation status (ICD-10) Family History Father Diabetes Mother Diabetes Family/Other Diabetes Uncle Stroke Social History Narrative: IUD (intrauterine device) in place- Placed by [facility]. 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 Non-smoker Rarely consumes alcohol What is your current living situation?: I presently have a place to live Problems where you live: no known problems Problems where you live details: no concerns In the past 12 months, utilities in danger of being shut off: no In past 12 months, lack of transportation kept you from medical appts, meetings, work, or getting things needed for daily living: no In the past 12 mos, have been you worried that your food would run out before you had money to buy more?: never true In the past 12 mos, the food you bought just didn't last and you didn't have money to buy more?: never true Smoking Status: Never smoker Do you use any of these nicotine containing products: None Second hand tobacco smoke exposure: No How often do you have a drink containing alcohol: monthly or less Alcohol type: beer How many standard drinks containing alcohol do you have on a typical day: 1 or 2 How often do you have six or more drinks on one occasion: Never AUDIT-C Alcohol total score: 1 Non-prescribed substance use: denies use Caffeine: Yes How often does anyone, including family, friends and others, physically hurt you: never How often does anyone, including family, friends and others, insult or talk down to you: never How often does anyone, including family, friends and others, threaten you with harm: never How often does anyone, including family, friends and others, scream or curse at you: never service: No Exam Narrative: Exam Narrative: Patient is alert and oriented. She appears to be in some discomfort. She is following commands with a GCS of 15. Pupils are equal round reactive. She does have some nystagmus but she is also blinking her eyes during my exam. This appears to mostly be lateral. A face is otherwise symmetrical with eyebrow raise smile. Face is symmetrical. Heart with regular rate and rhythm. Lungs are clear bilaterally. Abdomen soft. Upper extremity strength motor is intact as is lower extremity. Incomplete exam as she is taken directly to CT for imaging. Further exam shows pupils to be equal round reactive. The face symmetrical. Examination of TMs bilaterally without any abnormalities or abnormalities of the ear canals. Patient is observed walking to the bathroom with assistance. Const: Vital Signs, click to edit/add: Vital Signs - 24 hr 05/05/24 14:09 05/05/24 14:39 05/05/24 14:40 Temperature 98.3 F Pulse Rate 74 Pulse Rate [Pulse Oximeter] 79 Respiratory Rate 16 Blood Pressure Blood Pressure [Ri ght Upper Arm] 124/73 Pulse Oximetry 99 100 [facility] 05/05/24 14:40 05/05/24 14:41 05/05/24 14:46 Temperature Pulse Rate 72 Pulse Rate [Pulse Oximeter] Respiratory Rate 16 97 H Blood Pressure 119/49 L Blood Pressure [Ri ght Upper Arm] Pulse Oximetry 100 100 [facility] 05/[facility]/24 14:48 05/05/24 14:49 05/05/24 14:50 Temperature Pulse Rate 69 73 Pulse Rate [Pulse Oximeter] Respiratory Rate 33 H 16 Blood Pressure 100/59 L Blood Pressure [Ri ght Upper Arm] Pulse Oximetry 100 95 96 Oxygen Delivery Fl thod 05/05/24 15:00 05/05/24 15:02 05/05/24 15:03 Temperature Pulse Rate 66 72 69 Pulse Rate [Pulse Oximeter] Respiratory Rate 15 12 70 H Blood Pressure 99/60 Blood Pressure [Ri ght Upper Arm] Pulse Oximetry 100 99 99 Oxygen Delivery Fl thod 05/05/24 15:10 05/05/24 15:15 05/05/24 15:17 Temperature Pulse Rate 64 69 Pulse Rate [Pulse Oximeter] Respiratory Rate 13 16 19 Blood Pressure 97/56 L Blood Pressure [Ri ght Upper Arm] Pulse Oximetry 98 98 98 [facility] 15:20 05/05/24 15:30 05/05/24 15:31 Temperature Pulse Rate 83 65 Pulse Rate [Pulse Oximeter] Respiratory Rate 20 14 18 Blood Pressure 97/63 Blood Pressure [Ri ght Upper Arm] Pulse Oximetry 99 98 99 Oxygen Delivery Me thod 05/05/24 15:40 05/05/24 15:45 05/05/24 15:47 Temperature Pulse Rate 66 67 Pulse Rate [Pulse Oximeter] Respiratory Rate 19 18 19 Blood Pressure 101/65 Blood Pressure [Ri ght Upper Arm] Pulse Oximetry 99 99 99 Oxygen Delivery Me thod 05/05/24 15:48 05/05/24 15:50 05/05/24 16:00 Temperature Pulse Rate 77 Pulse Rate [Pulse Oximeter] Respiratory Rate 19 18 20 Blood Pressure Blood Pressure [Ri ght Upper Arm] Pulse Oximetry 99 100 99 Oxygen Delivery Me thod 05/05/24 16:02 05/05/24 16:10 05/05/24 16:15 Temperature Pulse Rate 68 Pulse Rate [Pulse Oximeter] Respiratory Rate 18 18 19 Blood Pressure Blood Pressure [Ri ght Upper Arm] Pulse Oximetry 99 99 99 Oxygen Delivery Me thod 05/05/24 16:17 05/05/24 16:29 05/05/24 16:30 Temperature Pulse Rate Pulse Rate [Pulse Oximeter] Respiratory Rate 20 19 22 Blood Pressure Blood Pressure [Ri ght Upper Arm] Pulse Oximetry 99 99 99 Oxygen Delivery Me thod 05/05/24 16:32 05/05/24 16:40 05/05/24 16:45 Temperature Pulse Rate 69 Pulse Rate [Pulse Oximeter] Respiratory Rate 25 H 21 22 Blood Pressure Blood Pressure [Ri ght Upper Arm] Pulse Oximetry 98 99 99 Oxygen Delivery Me thod 05/05/24 16:48 05/05/24 16:50 05/05/24 17:00 Temperature Pulse Rate Pulse Rate [Pulse Oximeter] Respiratory Rate 20 18 19 Blood Pressure Blood Pressure [Ri ght Upper Arm] Pulse Oximetry 100 99 99 Oxygen Delivery Me thod 05/05/24 17:02 05/05/24 17:10 05/05/24 17:15 Temperature Pulse Rate 72 Pulse Rate [Pulse Oximeter] Respiratory Rate 19 19 18 Blood Pressure Blood Pressure [Ri ght Upper Arm] Pulse Oximetry 99 99 99 Oxygen Delivery Me thod 05/05/24 17:17 05/05/24 17:20 05/05/24 17:30 Temperature Pulse Rate 79 Pulse Rate [Pulse Oximeter] Respiratory Rate 18 17 18 Blood Pressure Blood Pressure [Ri ght Upper Arm] Pulse Oximetry 99 99 98 Oxygen Delivery Me thod 05/05/24 17:32 05/05/24 17:45 Temperature Pulse Rate 80 73 Pulse Rate [Pulse Oximeter] Respiratory Rate 18 18 Blood Pressure 117/67 Blood Pressure [Ri ght Upper Arm] Pulse Oximetry 100 99 Oxygen Delivery Me thod Course Course ED Course: Patient's differential diagnosis includes but is not limited to stroke, labyrinthitis, benign positional vertical anxiety. Will place IV after initial head CT for CTA. Will contact Neurology in regards to this patient. CBC, comprehensive panel, CRP, urinalysis is also ordered. Reevaluation(s) Reevaluation #1: Patient noted to be doing better after Ativan 0.5 mg IV in terms of headache. This has improved. Will give her a migraine protocol with Toradol and Benadryl. Should she fail to improve will then add Reglan. Dr. Mckeon neurologist consulted while patient was getting CT. Reevaluation #2: Patient noted to have improvement after her Ativan in terms of her headache. However, she notes that she still has the spinning sensation. She is given Toradol and Benadryl. I do check back and now she states that she is not better. She has tested negative for COVID influenza and RSV. I had not heard back from the neurologist and thus to contact and again and I am able to talk to Dr. Souza. Consultations Consultation #1: Dr. Souza is able to follow Dr. Mckeon's note. At this time he did not note any nystagmus and feels that this is most likely a peripheral event. However, if patient is not improving does suggest MRI. If she is doing well tonight she may go home and do this as an outpatient. Vital Signs Vital signs: Initial Vital Signs Temperature 98.3 F 05/05/24 14:09 Temperature Source Temporal Artery Scan 05/05/24 14:09 Pulse Rate 79 05/05/24 14:09 Respiratory Rate 16 05/05/24 14:09 Blood Pressure 124/73 05/05/24 14:09 Blood Pressure Mean 90 05/05/24 14:09 Pulse Oximetry 99 05/05/24 14:09 Oxygen Delivery Method Room Air 05/05/24 14:09 Vital Signs Temperature 98.3 F 05/05/24 14:09 Pulse Rate 79 05/05/24 14:09 Respiratory Rate 16 05/05/24 14:09 Blood Pressure 124/73 05/05/24 14:09 Pulse Oximetry 99 05/05/24 14:09 Oxygen Delivery Method Room Air 05/05/24 14:09 Temperature 98.3 F 05/05/24 14:09 Pulse Rate 73 05/05/24 17:45 Respiratory Rate 18 05/05/24 17:45 Blood Pressure 117/67 05/05/24 17:32 Pulse Oximetry 99 05/05/24 17:45 Oxygen Delivery Method Room Air 05/05/24 14:09 Medications Administered Medications: Generic Name Dose Route Start Last Admin Trade Name Freq PRN Reason Stop Dose Admin Sodium Chloride 1,000 mls @ 125 mls/hr 05/05/24 19:08 05/05/24 19:43 0.9 % Sodium Chloride 1000 Ml IV 125 mls/hr .Q8H AINSLEY Administration Discontinued Medications Generic Name Dose Route Start Last Admin Trade Name Freq PRN Reason Stop Dose Admin Diphenhydramine HCl 25 mg 05/05/24 15:34 05/05/24 15:43 Diphenhydramine 50 Mg/Ml Inj IVP 05/05/24 15:35 25 mg ONCE ONE Administration Diphenhydramine HCl 25 mg 05/05/24 19:08 05/05/24 19:47 Diphenhydramine 50 Mg/Ml Inj IVP 05/05/24 19:09 25 mg ONCE ONE Administration Sodium Chloride 1,000 mls @ 1,000 mls/hr 05/05/24 14:21 05/05/24 15:48 0.9 % Sodium Chloride 1000 Ml IV 05/05/24 15:20 Infused .Q1H AINSLEY Infusion Sodium Chloride 500 mls @ 500 mls/hr 05/05/24 17:44 05/05/24 18:42 0.9 % Sodium Chloride 500 Ml IV 05/05/24 18:43 Infused .Q1H ONE Infusion Metoclopramide HCl 10 mg/ 102 mls @ 306 mls/hr 05/05/24 19:08 05/05/24 19:46 Sodium Chloride IVPB 05/05/24 19:09 306 mls/hr ONCE ONE Administration Ketorolac Tromethamine 15 mg 05/05/24 15:34 05/05/24 15:42 Ketorolac 15 Mg/Ml Inj IVP 05/05/24 15:35 15 mg ONCE ONE Administration Lorazepam 0.5 mg 05/05/24 14:22 05/05/24 14:53 Lorazepam 2 Mg/Ml Inj IVP 05/05/24 14:23 0.5 mg ONCE ONE Administration Lorazepam 0.25 mg 05/05/24 18:24 05/05/24 18:38 Lorazepam 2 Mg/Ml Inj IVP 05/05/24 18:25 0.25 mg ONCE ONE Administration MDM - Dizziness MDM Narrative Medical decision making narrative: 1. Vertigo with headache--patient had symptom discovery at 0300. CT and CTA are reassuring with no evidence of recurrent tumor, intracranial bleed or stroke. However, she has had persistent vertigo. At time she has told me she is better and then other time she tells me she is not any better. She has received a total of Ativan 0.5+ 0.25 mg, Toradol 15 mg, Zofran 4 mg and 1 L of normal saline. I had ordered Reglan and Benadryl but patient is currently being transfer to the floor and I have discussed this with Dr. Tirado. Subjective the patient is much improved from her arrival. During her time in the ED she felt hungry and she was able to eat but states that did not really make her feel any better. No evidence of lesions to suggest shingles. She has not been ill lately. She has tested negative for COVID influenza and RSV. Plan on MRI of the brain without contrast in the morning. No evidence of urinary tract infection. 2. Disposition-patient will be admitted to the floor under the care of Dr. Tirado. Medical Records Attestation: I reviewed the patient's medical records. Lab Data Attestation: I reviewed the patient's lab results. Labs: Lab Results 05/05/24 05/05/24 05/05/24 Range/Units 14:27 16:20 16:58 WBC 7.23 (4.50-11.00) K/uL RBC 4.65 (4.00-5.20) m/uL Hgb 13.3 (12.0-16.0) gm/dL Hct 39.5 (33.0-51.0) % MCV 85 (80-100) fL MCH 29 (26-34) pg MCHC 34 (32-36) gm/dL RDW Coeff of Erin 12.9 (11.5-15.5) % Plt Count 296 (140-440) K/uL Neut % (Auto) 70.6 (42.0-72.0) % Lymph % (Auto) 24.5 (20-44) % [place] % (Auto) 4.3 (0.0-11.0) % Eos % (Auto) 0.4 (0.0-7.0) % Baso % (Auto) 0.1 (0.0-3.0) % Neut # (Auto) 5.10 (1.7-7.0) K/uL Lymph # (Auto) 1.77 (0.90-2.90) K/uL [place] # (Auto) 0.30 (0.00-0.90) K/UL Eos # (Auto) 0.03 (0.00-0.50) K/uL Baso # (Auto) 0.01 (0.00-0.30) K/uL Abs Immat Gran (auto) 0.01 (0.00-0.30) K/uL Imm/Tot Granulo (auto) 0.1 % Sodium 134 L (135-149) mmol/L Potassium 4.1 (3.6-5.1) mmol/L Chloride 99 (96-114) mmol/L Carbon Dioxide 27 (20-32) mmol/L Anion Gap 8 (7-15) mEq/L BUN 19 (5-24) mg/dL Creatinine 0.8 (0.5-1.5) mg/dL Estimated Creat Clear 71.14 Estimated GFR 91 ml/min Glucose 164 H (60-115) mg/dL Calcium 9.1 (8.4-10.6) mg/dL Total Bilirubin 0.8 (0.1-1.5) mg/dL AST 15 (12-35) U/L ALT 19 (4-35) U/L Alkaline Phosphatase 81 (40-150) U/L C-Reactive Protein < 0.5 L (0.5-1.0) mg/dL Total Protein 6.9 (6.0-8.3) g/dL Albumin 4.4 (3.3-5.0) g/dL Urine Color Yellow (Yellow) Urine Appearance Clear (Clear) Urine pH 7.0 (5.0-8.5) Ur Specific [place] 1.015 (1.000-1.030) Urine Protein Negative (Negative) Urine Glucose (UA) Negative (Negative) Urine Ketones Negative (Negative) Urine Blood Negative (Negative) Urine Nitrite Negative (Negative) Urine Bilirubin Negative (Negative) Urine Urobilinogen 1.0 (0.2-1.0) Ur Leukocyte Esterase Negative (Negative) Urine RBC 0-2 (0-2) Urine WBC 0-2 (0-5) Ur Squamous Epith Cells Moderate A (None-Few) Amorphous Sediment Moderate A (None) Urine Bacteria Few A (None) SARS-CoV-2 (PCR) Negative SARS-CoV-2 (Negative) Influenza Type A (PCR) Negative PCR FLU A (Negative) Influenza Type B (PCR) Negative PCR FLU B (Negative) RSV (PCR) Negative PCR RSV (Negative) Imaging Data CT scan - head: Attestation: I have reviewed the pertinent imaging results. My impression: No evidence of intracranial bleed Radiologist's impression: ostsurgical changes of remote left frontotemporoparietal craniotomy. The ventricles and sulci are within normal limits for patient age. No mass effect or midline shift. The naik white differentiation is maintained. No acute intracranial hemorrhage or pathologic extra-axial fluid collection. The globes are symmetric. No calvarial fracture. The paranasal sinuses and mastoid air cells are clear. IMPRESSION: 1. No acute intracranial hemorrhage or mass effect. 2. Postsurgical changes of remote left frontotemporoparietal craniotomy. CTA head and neck: Attestation: I have reviewed the pertinent imaging results. Radiologist's impression: reliminary Report: No proximal large vessel occlusion or cervical arterial stenosis No proximal large vessel occlusion or cervical arterial stenosis. ECG Data Attestation: I personally reviewed and interpreted this ECG as follows: ECG interpretation date: 05/05/24 Interpretation: EKG by my read shows sinus rhythm at a rate of 74. I do not note any acute ST or T-wave changes QT and KY intervals within normal limits. Discharge Plan Discharge Clinical Impression: Vertigo Headache Qualifiers: Headache type: unspecified Headache chronicity pattern: unspecified pattern Intractability: intractable Qualified Code(s): R51.9 - Headache, unspecified Patient Disposition: Admitted As Observation Condition: Improved
--- OUTSIDE RECORDS SUMMARY | 2024-05-05 14:27 | XMS_ITS | Clinical Summary ---
Author Organization [facility] Address [address] [place] [address] Care Team Providers Care Pensionholder Information Clerk Name Role Phone Unavailable Primary Care Provider Unavailabl e Source Comments Patient records contain information from all sites at [facility]. For routine questions regarding patient records, call [phone] during business hours, M-F 8:00 AM - 5:00 PM Central Time. Record requests for emergency care only can be directed to [phone] at any time.[facility] Allergies No known active allergies Medications atorvastatin [...] (01/13/2020): Added automatically from request for surgery [id number] Social History Tobacco Use Types Packs/Day Years [...] often do you attend chur ch or samaritan services? 1 to 4 times per year 06/28/2022 Do you belong to any clubs o r organizations such as tenriism groups, unions, fraternal or athletic groups, or [...] and heating? Not hard at all 06/28/2022 [facility] Occupat ional Health - Occupational Stress [...] place to sleep or slept in a longterm (including now)? No 06/28/2022 Nutrition Answer Date [...] CDT Gender Identity Female 01/20/2020 1:22 PM GROUP HOME MANAGER Sexual Orientation Straight 01/20/2020 1: 22 PM GROUP HOME MANAGER Last Filed Vital Signs Vital Sign Reading Time Taken Comments Blood Pressure 125/80 10/30/2022 8:14 AM CDT Pulse 87 10/30/2022 8:14 AM CDT Temperature 37.8 C (100 F) 03/30/2020 10:25 AM GROUP HOME MANAGER Respiratory Rate 16 02/27/2020 7:00 AM GROUP HOME MANAGER Oxygen Saturation 100% 02/27/2020 7:00 AM GROUP HOME MANAGER Inhaled Oxygen Concentration - - Weight 105 [...] this topic Medical Devices Implanted Type Area Community Organization Worker Device Identifier Shelf Expiration Date Model / Serial / Lot Scrw Ti Sdr Lp 1.6x2.9x6 - [id number] Implanted:Qty: 1 on 02/24/2020 by Kaz Ceron M.B.B.S. at [facility] Hardware e.g. pins/screws/r ods Depuy Synthes [id number] / / Scrw Mdface Sdrl 1.5x2.9x4 - [id number] Implanted:Qty: 12 on 02/24/2020 by Kaz Ceron M.B.B.S. at [facility] Hardware e.g. pins/screws/r ods Depuy Synthes [id number] / / Plt L1 Neuro Cmf Cvr Bur 12 - [id number] Implanted:Qty: 1 on 02/24/2020 by Kaz Ceron M.B.B.S. at [facility] Hardware e.g. pins/screws/r ods Depuy Synthes [id number] / / Plt L1 Neuro Cmf Cvr Bur 17 - [id number] Implanted:Qty: 2 on 02/24/2020 by Kaz Ceron M.B.B.S. at [facility] Hardware e.g. pins/screws/r ods Depuy Synthes [id number] / / Procedures Procedure Name Priority Date/Time Associated Diagnosis Comments BASIC METABOLIC PANEL, S/P Routine 02/27/2020 6:18 AM GROUP HOME MANAGER HEMOGLOBIN A1C, B Routine 02/23/2020 12: 33 PM GROUP HOME MANAGER Mass Dura Brain from Last 3 Months or Most Recently Relevant to Health Maintenance Results * (ABNORMAL) Basic Metabolic Panel (02/27/2020 6:18 AM GROUP HOME MANAGER) Potassium, P 4.0 3.6 - 5.2 mmol/L 02/27/2020 7:05 AM GROUP HOME MANAGER MK[facility] Sodium, P 137 135 - 145 mmol/L 02/27/2020 7:05 AM GROUP HOME MANAGER [facility] Chloride, P 104 98 - 107 mmol/L 02/27/2020 7:05 AM GROUP HOME MANAGER [facility] Bicarbonate, P 24 22 - 29 mmol/L 02/27/2020 7:05 AM GROUP HOME MANAGER [facility] Anion Gap, P 9 7 - 15 02/27/2020 7:05 AM GROUP HOME MANAGER [facility] BUN (Blood Urea Nitrogen), P 16 6 - 21 mg/dL 02/27/2020 7:05 AM GROUP HOME MANAGER [facility] Creatinine 0.77 0.59 - 1.04 mg/dL 02/27/2020 7:05 AM GROUP HOME MANAGER [facility] eGFR-Black/Afri can Polish >90 >=60 mL/min/BSA 02/27/2020 7:05 AM GROUP HOME MANAGER [facility] Comment: ----ADDITIONAL INFORMATION---- Estimated GFR calculated using the 2009 CKD_EPI creatinine equation. eGFR Non-Black/Afric an Polish >90 >=60 mL/min/BSA 02/27/2020 7:05 AM GROUP HOME MANAGER MKTO Comment: ----ADDITIONAL INFORMATION---- Estimated GFR calculated using the 2009 CKD_EPI creatinine equation. Calcium, Total, P 7.9(L) 8.6 - 10.0 mg/dL 02/27/2020 7:05 AM GROUP HOME MANAGER MK[facility] Glucose, P 165(H) 70 - 140 mg/dL 02/27/2020 7:05 AM GROUP HOME MANAGER TO Blood (Blood, Venous) 02/27/2020 6:18 AM GROUP HOME MANAGER 02/27/2020 6:42 AM GROUP HOME MANAGER Zaki Arrieta APRN C.N.P., M.S.N. LAB BLOOD ADD-ON Final Result [facility] [address] [place] [address], [place] [address] * (ABNORMAL) Hemoglobin A1c (02/23/2020 12:33 PM GROUP HOME MANAGER) Hemoglobin A1c, B 6.5(H) 4.2 - 5.6 % 02/23/2020 12:59 PM GROUP HOME MANAGER MKTO Comment: Hemoglobin A1c values greater than or equal to 6.5 percent are diagnostic for diabetes mellitus. Diagnosis should be confirmed by repeat testing. In diabetic patients, HbA1c goals should be discussed with healthcare provider. Blood (Blood, Venous) 02/23/2020 12:33 PM GROUP HOME MANAGER 02/23/2020 12:36 PM GROUP HOME MANAGER Kaz Colindres LAB BLOOD ADD-ON Final Result [facility] [address] [place] [address], [place] [facility] [place] [address] [place] [address] from Last 3 Months or Most Recently Relevant to Health Maintenance Insurance MEDICA Advance Directives For more information, please contact: [phone] * Full Code (Latest Code Status on File) Date Activated Date Inactivated Comments 02/24/2020 4:49 PM 02/27/2020 1:44 PM Question Answer Comments Full Code: Discussed
--- OUTSIDE RECORDS SUMMARY | 2024-05-05 14:27 | XMS_ITS | Clinical Summary ---
Author Organization [facility] Address [address] [place] [id number] Care Team Providers Care Auto Roller Name Role Phone Wendi Goldman NP Primary Care Provider [phone] Allergies No known active allergies Medications dextroamphetami [...] on file Legal Sex Female 7:02 AM TRAVEL JOURNALIST Gender Identity Not on file Sexual Orientation [...] F Vag Livin g Mariss a Delivery Location:[facility] Comments:uncomplicated 004 Term 38w 0d 3.77 kg (8 lb 5 oz) M Vag None Livin g Harley Delivery Location:[facility] Comments:some shoulder dystocia 008 Term 40w [...] PANEL Early AM 06/15/2019 6:51 AM CDT PROPERTY DISPOSAL OFFICER THIN PREP PAP SCREEN IMAGED Routine 02/20/2017 4:10 PM TRAVEL JOURNALIST ANTI HIV 1/2 Routine 09/11/2006 10:59 AM CDT Supervision Of Other Normal from Last 3 Months or Most Recently Relevant to Health Maintenance Results * (ABNORMAL) LIPID PANEL (06/15/2019 6:51 AM CDT) CHOLESTEROL,TOTAL 178 100 - 199 mg/dL 06/15/2019 7:20 AM CDT [facility] TRIGLYCERIDES 165(H) <150 mg/dL 06/15/2019 7:20 AM CDT [facility] HDL CHOLESTEROL 35(L) >40 mg/dL 0 7:20 AM CDT [facility] NON-HDL CHOLESTEROL 143 <145 mg/dl 06/15/2019 7:20 AM CDT [facility] CHOL/HDL RATIO 5.09(H) <4.50 06/15/2019 7:20 AM CDT [facility] LDL CHOLESTEROL 110 <=130 mg/dL 06/15/2019 7:20 AM CDT [facility] PROVIDER ORDERED STATUS RANDOM 06/15/2019 7:20 AM CDT [facility] Blood BLOOD SPECIMEN / Unknown Venipuncture / Unknown 06/15/2019 6:51 AM CDT 06/15/2019 6:58 AM CDT Rajendra Hernandez DO CHEMISTRY Final R esult [facility] [address] [place] [address], [place] * PROPERTY DISPOSAL OFFICER THIN PREP PAP SCREEN IMAGED (02/20/2017 4:10 PM TRAVEL JOURNALIST) Case Report Gynecologic Cytology Report Case: [id number] Authorizing Provider: Michaela Álvarez PA-C Collected: 02/20/2017 1610 First Screen: Dot Barriga Received: 02/21/2017 1817 Specimen: PROPERTY DISPOSAL OFFICER ThinPrep Vial Screening, Cervical/Vaginal 03/06/2017 4:58 PM TRAVEL JOURNALIST [facility] INTERPRETATION/ RESULT NEGATIVE FOR INTRAEPITHELIAL LESION OR MALIGNANCY (NIL) (none) 03/06/2017 4:58 PM TRAVEL JOURNALIST [facility] IMEN ADEQUACY Satisfactory for evaluation Endocervical component present 03/06/2017 4:58 PM TRAVEL JOURNALIST [facility] HPV REQUEST HPV and PAP 03/06/2017 4:58 PM TRAVEL JOURNALIST [facility] Date of LMP 02/03/2017 03/06/2017 4:58 PM TRAVEL JOURNALIST [facility] Last Pap Date 02/08/2017 03/06/2017 4:58 PM TRAVEL JOURNALIST [facility] Last Pap Result UNS 7 4:58 PM TRAVEL JOURNALIST [facility] Automated Review Successful 03/06/2017 4:58 PM TRAVEL JOURNALIST [facility] Comment:Specimen processed s uccessfully by automated hims manager device, ThinPrep Imaging System, [employer] ANCILLARY TESTING PROPERTY DISPOSAL OFFICER HPV Ordered, Please see separate report 03/06/2017 4:58 PM TRAVEL JOURNALIST [facility] Note The pap test is a screening technique, not a diagnostic procedure. It is used primarily to screen for squamous cancers and precursor lesions. Published studies have shown that it is subject to both false negative and false positive results. The pap test should not be used as the sole means to diagnose or exclude pre-malignant and malignant lesions. Interpreted at [facility] ([facility], [facility], [facility], [facility], [facility], [facility], [facility]) 03/06/2017 4:58 PM TRAVEL JOURNALIST [facility] Other (Cervical/Vagina l) 02/20/2017 4:10 PM TRAVEL JOURNALIST 02/21/2017 6:17 PM TRAVEL JOURNALIST us June Lloyd Álvarez PA-C PATHOLOGY/CYTOLOGY Final R esult [facility] [address] [place] [address], [place] * ANTI HIV 1/2 (09/11/2006 10:59 AM CDT) ANTI HIV 1/2 Non-reacti ve [facility] Blood specimen (specimen) BLOOD SPECIMEN / Unknown 09/11/2006 10:59 AM CDT 09/11/2006 10:49 AM CDT us Patricia Lo SEND OUTS Final R esult [facility] [place]IP [id number] [address] from Last 3 Months or Most Recently Relevant to Health Maintenance Insurance [employer] CHOICE MED[employer] Member Subscriber Plan / Payer (Ef fective 2019-Present) Name:Elieser Colónlisset Relation to Subscriber:Self Name:Eliceo Colón Payer ID:[id number] (NAIC) Type:Not on file Address: [place] [id number] MED[employer] Advance Directives * Full Code (Latest Code Status on File) Date Activated Date Inactivated Comments 06/14/2019 10:41 PM 06/15/2019 11:37 PM * Full Code Date Activated Date Inactivated Comments 12/19/2006 10:23 AM 12/20/2006 12:27 PM Care Teams Auto Roller Relationship Specialty Start Date End Date eWndi Goldman NP PCP - General Nurse Practitioner 11/20/19
[2024-05-05 14:43] LABS: Basophils Absolute Auto 0.01 K/uL (0.00-0.30); Basophils Percent Auto 0.1 % (0.0-3.0); Eosinophils Absolute Auto 0.03 K/uL (0.00-0.50); Eosinophils Percent Auto 0.4 % (0.0-7.0); Hematocrit 39.5 % (33.0-51.0); Hemoglobin* 13.3 gm/dL (12.0-16.0); Immature Granulocytes Abs Auto 0.01 K/uL (0.00-0.30); Immature Granulocytes Pct Auto 0.1 %; Lymphocytes Absolute Auto 1.77 K/uL (0.90-2.90); Lymphocytes Percent Auto 24.5 % (20-44); Mean Corpuscular HGB Conc 34 gm/dL (32-36); Mean Corpuscular Hemoglobin 29 pg (26-34); Mean Corpuscular Volume 85 fL (80-100); Monocytes Percent Auto 4.3 % (0.0-11.0); Neutrophils Percent Auto 70.6 % (42.0-72.0); Platelet Count* 296 K/uL (140-440); RDW Coefficient of Variation % 12.9 % (11.5-15.5); Red Blood Count 4.65 m/uL (4.00-5.20); White Blood Count* 7.23 K/uL (4.50-11.00)
[2024-05-05] MEDS: 0.9 % SODIUM CHLORIDE 1000 ml 1,000 ML IV (14:49)
[2024-05-05] MEDS: LORazepam 2 MG/ML inj 0.5 MG IVP (14:53)
[2024-05-05 14:54] LABS: Albumin* 4.4 g/dL (3.3-5.0); Chloride* 99 mmol/L (96-114); Sodium* 134 mmol/L (135-149)
[2024-05-05 14:55] LABS: Potassium* 4.1 mmol/L (3.6-5.1)
[2024-05-05 14:57] LABS: Bilirubin Total* 0.8 mg/dL (0.1-1.5); Creatinine* 0.8 mg/dL (0.5-1.5); Est. Creatinine Clearance* 71.14; Estimated Glomerular Filt Rate 91 ml/min
[2024-05-05 14:58] LABS: Alanine Aminotransferase* 19 U/L (4-35); Alkaline Phosphatase* 81 U/L (40-150); Anion Gap 8 mEq/L (7-15); Aspartate Amino Transferase* 15 U/L (12-35); Blood Urea Nitrogen* 19 mg/dL (5-24); Calcium* 9.1 mg/dL (8.4-10.6); Carbon Dioxide* 27 mmol/L (20-32); Glucose* 164 mg/dL (60-115); Total Protein* 6.9 g/dL (6.0-8.3)
[2024-05-05 15:03] LABS: Slide Review Reflex No
[2024-05-05 15:10] LABS: C Reactive Protein* < 0.5 mg/dL (0.5-1.0)
[2024-05-05] MEDS: KETOROLAC 15 MG/ML inj IVP (15:42)
[2024-05-05] MEDS: diphenhydrAMINE 50 MG/ML inj 25 MG IVP ×2 (15:43→19:47)
[2024-05-05 16:32] LABS: Appearance Urine Clear (Clear); Bilirubin Urine Negative (Negative); Blood Urine Negative (Negative); Color Urine Yellow (Yellow); Glucose Urine Negative (Negative); Ketones Urine Negative (Negative); Leukocyte Esterase Urine Negative (Negative); Nitrite Urine Negative (Negative); Protein Urine Negative (Negative); Specific Gravity Urine 1.015 (1.000-1.030)
[2024-05-05 16:46] LABS: Amorphous Sediment Urine Moderate; Bacteria Urine Few; RBC Urine 0-2 (0-2); Squamous Epithelial Cell Urine Moderate (None-Few); WBC Urine 0-2 (0-5)
[2024-05-05] MEDS: 0.9 % SODIUM CHLORIDE 500 ML 500 ML IV (17:50)
[2024-05-05 18:11] LABS: PCR FLU A Negative PCR FLU A (Negative); PCR FLU B Negative PCR FLU B (Negative); PCR RSV Negative PCR RSV (Negative); SARS PCR* Negative SARS-CoV-2 (Negative)
[2024-05-05] MEDS: LORazepam 2 MG/ML inj 0.25 MG IVP (18:38)
[2024-05-05] MEDS: 0.9 % SODIUM CHLORIDE 1000 ml 1,000 ML 125 ML IV (19:43)
[2024-05-05] MEDS: METOCLOPRAMIDE HCL 10 MG in 0.9 % SODIUM CHLORIDE 100 ml 100 ML 306 MG IVPB (19:46)
--- NOTE | 2024-05-05 20:37 | P.IMHP_ITS ---
Hospitalist- H&P: HPI History of Present Illness Date Seen: 05/05/24 Chief complaint: Vertigo, nausea Narrative: Eliceo Colón is a 49 year old female with diabetes mellitus, obesity, hypertension, narcolepsy, migraines and history of craniotomy for meningioma now presents with onset of severe and persistent vertigo that started when she get up to the bathroom around 3 or 4:00 a.m.. The vertigo was persistent but she did fall asleep. She reports laying on her left side helped a little bit but it did not go away completely. Lying supine made her feel worse. She also reports a headache but tells me this headache has been somewhat persistent for the last month. It is worse today than usual however. No previous history of vertigo. No abnormal hearing. Longstanding history of migraine headaches. She reports that she had a craniotomy in February of 2020 to remove a meningioma. Since that time she has had minimal headaches until recently when she has had more persistent headache. Records from her neurologist on 10/30/2022 also showed that she had epilepsy. Epilepsy developed shortly after her craniotomy. She was treated with Keppra and then switched to lamotrigine. She was seizure free. Eeg testing showed no further seizure activity. Starting in October of 2022 she tapered off lamotrigine and is not having seizures. She reports no other symptoms of illness. No cold, cough, fever. She did have nausea and vomiting today. She also reported she was little bit nauseated last night but otherwise was feeling fine yesterday. No cough or shortness of breath. No chest pain or abdominal pain. [facility] Medical History (Updated 05/05/24 @ 20:53 by Neftali Tirado MD) Epilepsy ?G40.909 - Epilepsy, unspecified, not intractable, without status epilepticus (ICD-10) Influenza B ?J10.1 - Influenza due to other identified influenza virus with other respiratory manifestations (ICD-10) Type 2 diabetes mellitus, without long-term current use of insulin ?E11.9 - Type 2 diabetes mellitus without complications (ICD-10) Meningioma ?D32.9 - Benign neoplasm of meninges, unspecified (ICD-10) Uterine leiomyoma ?D25.9 - Leiomyoma of uterus, unspecified (ICD-10) Panic attack ?F41.0 - Panic disorder [episodic paroxysmal anxiety] (ICD-10) History of abnormal cervical Papanicolaou smear (2008) ?Z87.42 - Personal history of other diseases of the female genital tract (ICD-10) Major depression ?F32.9 - Major depressive disorder, single episode, unspecified (ICD-10) H/O benign neoplasm of craniopharyngeal duct ?Z86.018 - Personal history of other benign neoplasm (ICD-10) Heavy menstrual bleeding ?N92.0 - Excessive and frequent menstruation with regular cycle (ICD-10) HPV in female ?B97.7 - Papillomavirus as the cause of diseases classified elsewhere (ICD- 10) Surgical History Status post abdominal hysterectomy (11/14/22) ?Z90.710 - Acquired absence of both cervix and uterus (ICD-10) H/O craniotomy (2019) ?Z98.890 - Other specified postprocedural states (ICD-10) H/O colposcopy with cervical biopsy ?Z98.890 - Other specified postprocedural states (ICD-10) H/O myomectomy ?Z98.890 - Other specified postprocedural states (ICD-10) History of tubal ligation ?Z98.51 - Tubal ligation status (ICD-10) Family History Father Diabetes Mother Diabetes Family/Other Diabetes Uncle Stroke Social History (Updated 05/05/24 @ 20:48 by Neftali Tirado MD) Narrative: Lives in [place] with her , Harley, and her son. 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 Code status is full IUD (intrauterine device) in place- Placed by [facility]. 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 No recreational drug use. Rarely consumes alcohol, approximately every other weekend What is your current living situation?: I presently have a place to live Problems where you live: no known problems Problems where you live details: no concerns In the past 12 months, utilities in danger of being shut off: no In past 12 months, lack of transportation kept you from medical appts, meetings, work, or getting things needed for daily living: no In the past 12 mos, have been you worried that your food would run out before you had money to buy more?: never true In the past 12 mos, the food you bought just didn't last and you didn't have money to buy more?: never true Smoking Status: Never smoker Do you use any of these nicotine containing products: None Second hand tobacco smoke exposure: No How often do you have a drink containing alcohol: monthly or less Alcohol type: beer How many standard drinks containing alcohol do you have on a typical day: 1 or 2 How often do you have six or more drinks on one occasion: Never AUDIT-C Alcohol total score: 1 Non-prescribed substance use: denies use Caffeine: Yes How often does anyone, including family, friends and others, physically hurt you : never How often does anyone, including family, friends and others, insult or talk down to you: never How often does anyone, including family, friends and others, threaten you with harm: never How often does anyone, including family, friends and others, scream or curse at you: never service: No Meds Home Medications and Allergies Home Medications ?Medication ?Instructions ?Recorded ?Confirmed ?Type blood-glucose meter (OneTouch 10/31/21 01/15/24 History Ultra2 Meter) dextroamphetamine-amphetamine ER 60 mg PO QDAY 03/10/22 01/15/24 History 30 mg 24hr capsule,extend release (Adderall XR) blood sugar diagnostic (OneTouch 11/21/23 01/15/24 History Ultra Test strips) Allergies Allergy/AdvReac Type Severity Reaction Status Date / Time No Known Drug Allergies Allergy Verified 01/15/24 16:31 Exam Narrative: Exam Narrative: She is tired appearing but awake. She gives her own history with good detail. Head is without recent trauma. Eyes are normal. Pupils are small but reactive to light. Extraocular movements are full. There is no nystagmus. Visual troncoso are intact. No facial asymmetry. Oropharynx with small airway. Neck is supple without mass or adenopathy. Respirations are clear to auscultation. Cardiovascular: S1, S2, regular rate and rhythm. Abdomen: Bowel sounds active. Abdomen is soft without tenderness or mass. She has intact and full strength in all 4 extremities in all tested muscle groups. [id number] is somewhat slow and clumsy in both upper extremities. Finger taps are also somewhat slow and clumsy in both hands. Const: Vital Signs, click to edit/add: Vital Signs - 24 hr 05/05/24 14:09 05/05/24 14:39 05/05/24 14:40 Temperature 98.3 F Pulse Rate 74 Pulse Rate [Pulse Oximeter] 79 Respiratory Rate 16 Blood Pressure Blood Pressure [Ri ght Upper Arm] 124/73 Pulse Oximetry 99 100 100 Oxygen Delivery Me thod Room Air 05/05/24 14:40 05/05/24 14:41 05/05/24 14:46 Temperature Pulse Rate 72 Pulse Rate [Pulse Oximeter] Respiratory Rate 16 97 H Blood Pressure 119/49 L Blood Pressure [Ri ght Upper Arm] Pulse Oximetry 100 100 Oxygen Delivery Me thod 05/05/24 14:48 05/05/24 14:49 05/05/24 14:50 Temperature Pulse Rate 69 73 Pulse Rate [Pulse Oximeter] Respiratory Rate 33 H 16 Blood Pressure 100/59 L Blood Pressure [Ri ght Upper Arm] Pulse Oximetry 100 95 96 Oxygen Delivery Me thod 05/05/24 15:00 05/05/24 15:02 05/05/24 15:03 Temperature Pulse Rate 66 72 69 Pulse Rate [Pulse Oximeter] Respiratory Rate 15 12 70 H Blood Pressure 99/60 Blood Pressure [Ri ght Upper Arm] Pulse Oximetry 100 99 99 Oxygen Delivery Me thod 05/05/24 15:10 05/05/24 15:15 05/05/24 15:17 Temperature Pulse Rate 64 69 Pulse Rate [Pulse Oximeter] Respiratory Rate 13 16 19 Blood Pressure 97/56 L Blood Pressure [Ri ght Upper Arm] Pulse Oximetry 98 98 98 Oxygen Delivery Me thod 05/05/24 15:20 05/05/24 15:30 05/05/24 15:31 Temperature Pulse Rate 83 65 Pulse Rate [Pulse Oximeter] Respiratory Rate 20 14 18 Blood Pressure 97/63 Blood Pressure [Ri ght Upper Arm] Pulse Oximetry 99 98 99 Oxygen Delivery Me thod 05/05/24 15:40 05/05/24 15:45 05/05/24 15:47 Temperature Pulse Rate 66 67 Pulse Rate [Pulse Oximeter] Respiratory Rate 19 18 19 Blood Pressure 101/65 Blood Pressure [Ri ght Upper Arm] Pulse Oximetry 99 99 99 Oxygen Delivery Me thod 05/05/24 15:48 05/05/24 15:50 05/05/24 16:00 Temperature Pulse Rate 77 Pulse Rate [Pulse Oximeter] Respiratory Rate 19 18 20 Blood Pressure Blood Pressure [Ri ght Upper Arm] Pulse Oximetry 99 100 99 Oxygen Delivery Me thod 05/05/24 16:02 05/05/24 16:10 05/05/24 16:15 Temperature Pulse Rate 68 Pulse Rate [Pulse Oximeter] Respiratory Rate 18 18 19 Blood Pressure Blood Pressure [Ri ght Upper Arm] Pulse Oximetry 99 99 99 Oxygen Delivery Me thod 05/05/24 16:17 05/05/24 16:29 05/05/24 16:30 Temperature Pulse Rate Pulse Rate [Pulse Oximeter] Respiratory Rate 20 19 22 Blood Pressure Blood Pressure [Ri ght Upper Arm] Pulse Oximetry 99 99 99 Oxygen Delivery Me thod 05/05/24 16:32 05/05/24 16:40 05/05/24 16:45 Temperature Pulse Rate 69 Pulse Rate [Pulse Oximeter] Respiratory Rate 25 H 21 22 Blood Pressure Blood Pressure [Ri ght Upper Arm] Pulse Oximetry 98 99 99 Oxygen Delivery Me thod 05/05/24 16:48 05/05/24 16:50 05/05/24 17:00 Temperature Pulse Rate Pulse Rate [Pulse Oximeter] Respiratory Rate 20 18 19 Blood Pressure Blood Pressure [Ri ght Upper Arm] Pulse Oximetry 100 99 99 Oxygen Delivery Me thod 05/05/24 17:02 05/05/24 17:10 05/05/24 17:15 Temperature Pulse Rate 72 Pulse Rate [Pulse Oximeter] Respiratory Rate 19 19 18 Blood Pressure Blood Pressure [Ri ght Upper Arm] Pulse Oximetry 99 99 99 Oxygen Delivery Me thod 05/05/24 17:17 05/05/24 17:20 05/05/24 17:30 Temperature Pulse Rate 79 Pulse Rate [Pulse Oximeter] Respiratory Rate 18 17 18 Blood Pressure Blood Pressure [Ri ght Upper Arm] Pulse Oximetry 99 99 98 Oxygen Delivery Me thod 05/05/24 17:32 05/05/24 17:45 Temperature Pulse Rate 80 73 Pulse Rate [Pulse Oximeter] Respiratory Rate 18 18 Blood Pressure 117/67 Blood Pressure [Ri ght Upper Arm] Pulse Oximetry 100 99 Oxygen Delivery Me thod Documenting provider has reviewed patient's vital signs: yes Hospitalist - H&P: Result Labs Labs: Short CBC 05/05/24 Range/Units 14:27 WBC 7.23 (4.50-11.00) K/uL Hgb 13.3 (12.0-16.0) gm/dL Hct 39.5 (33.0-51.0) % Plt Count 296 (140-440) K/uL BMP 05/05/24 14:27 Sodium 134 L Potassium 4.1 Chloride 99 Carbon Dioxide 27 BUN 19 Creatinine 0.8 Glucose 164 H Calcium 9.1 Liver Function 05/05/24 Range/Units 14:27 Total Bilirubin 0.8 (0.1-1.5) mg/dL AST 15 (12-35) U/L ALT 19 (4-35) U/L Alkaline Phosphatase 81 (40-150) U/L Albumin 4.4 (3.3-5.0) g/dL Urine 05/05/24 Range/Units 16:20 Urine Color Yellow (Yellow) Urine Appearance Clear (Clear) Urine pH 7.0 (5.0-8.5) Ur Specific [place] 1.015 (1.000-1.030) Urine Protein Negative (Negative) Urine Glucose (UA) Negative (Negative) Imaging CT scan - head: Attestation: I have reviewed the pertinent imaging results. (Preliminary head CT and CTA with no acute findings and no large vessel occlusion) Assessment and Plan Assessment and plan (1) Vertigo: Problem comment: Acute and persistent, normal neuro exam. Normal CT. If not resolving obtain brain MRI. Status: Acute (2) Headache: Problem comment: Acute on chronic with history of migraines. Symptomatic treatment. Status: Acute (3) Type 2 diabetes mellitus, without long-term current use of insulin: Problem comment: Resume normal medications. Status: Acute Plan 49-year-old female admitted to the hospital with persistent vertigo and headache. Evaluation so far is reassuring patient continues to have significant symptoms. Will observe overnight and if not resolving obtain MRI tomorrow. Continued treatment for migraine headache with Toradol, Compazine, Benadryl as needed. Plan of care is discussed with patient, and other providers. Total time spent today is 60 minutes in reviewing outside records, discussing with patient and other providers ongoing evaluation and management of vertigo/stroke/headache symptoms.
[2024-05-05] MEDS: INSULIN ASPART 100 UNIT/ML SUBCUT (21:25)
[2024-05-05] MEDS: KETOROLAC 30 MG/ML inj 15 MG IVP (23:40)
[2024-05-06 03:27] VITALS: BP 106/64; PULSE 73; RESP 16; TEMP 36.6; O2SAT 99
--- NOTE | 2024-05-06 06:52 | PC.NURSE ---
End of shift note : Pt A&Ox4 and able to make needs known. She was noted to be drowsy upon admission to med/surg due to many medications given in ED to treat c/o nausea and headache. PRN Toradol administered for continued c/o headache pain. spent part of night at bedside with patient. Pt transferring/ambulating with assist of 1 using FWW and gait belt. Pt continent of bladder this morning though urine noted to be dark zahraa in color- po fluids encouraged. Tele in place with NSR noted. Pt reports feeling better today when compared to yesterday. Bed alarm on and call light within reach. ??
[2024-05-06 07:00] VITALS: BP 114/78; PULSE 83; RESP 18; TEMP 36.4; O2SAT 97
[2024-05-06] MEDS: METFORMIN ER 500 MG 2000 MG PO (10:09)
[2024-05-06] MEDS: lisinopriL 10 MG TABLET PO (10:10)
[2024-05-06] MEDS: hydroCHLOROthiazide 12.5 MG CAPSULE PO (10:10)
[2024-05-06] MEDS: SODIUM CHLORIDE 0.9 % (FLUSH) 10 ML SYRINGE 5 ML IVF (10:12)
--- NOTE | 2024-05-06 11:42 | PM.DS1 ---
DS: Providers Provider Date Seen: 05/06/24 Date of admission: 05/05/24 20:03 Primary care physician: Madan Wilkinson MD Admitting Clinician: Neftali Tirado MD Consults: 05/05/24 20:16 Consult to Occupational Therapy [CONS] Routine Comment: Reason(s) for OT Consult:: Evaluate and Treat Any Restrictions?:: No Restrictions Consult to Physical Therapy [CONS] Routine Comment: Reason(s) for PT Consult:: Evaluate and Treat Any Restrictions?:: No Restrictions Attending Physician on discharge: Benita Stafford MD Date of Discharge: 05/06/24 DS: Diagnosis Discharge Diagnosis (1) Vertigo: Status: Acute Problem details: - acute and persistent, normal neuro exam, head CT - MRI 05/06 also reassuring - seen by therapies and outpatient therapy recommended upon d/c (2) Headache: Status: Acute Problem details: - Acute on chronic with history of migraines, improved 05/06 (3) Type 2 diabetes mellitus, without long-term current use of insulin: Status: Acute Problem details: - remained on home medications during stay; last A1C 7.3 (11/2023) DS: Summary Hospital Course Hospital Course: Eliceo was admitted to the hospital on 05/05 for vertigo and headache. History of meningioma, status post surgical resection with neuro surgery at [facility]. Imaging (CT and MRI) reassuring. Symptoms improved on hospital day 1, patient appropriate for discharge home with . She was noted to have some instability with balance and PT recommends outpatient follow-up, which was ordered. Comorbidities remained stable, no changes made to home medications. She will see her PCP in 7-10 days, understands return precautions. Status at Discharge Functional status at discharge: independent ambulation Overall status at discharge: patient is progressing back to baseline Time Spent with Patient Time attestation: Total time spent providing and/or coordinating discharge services: Time spent: Greater than 30 minutes Specific discharge activities: Patient Education, multidisciplinary team coordination and care Exam Narrative: Exam Narrative: GEN: Alert and oriented, nontoxic, sitting in bedside chair and having breakfast HEENT: EOMIs bilaterally, no scleral icterus CV: RRR, No concerning murmurs R: LCTA bilaterally without concerning wheezing Ext: wwp, no concerning edema Skin: No concerning skin lesions or rashes on exposed skin Neuro: No resting tremor, negative Romberg, EOMIs bilaterally, DTRs symmetric Psych: Appropriate Const: Vital Signs, click to edit/add: Vital Signs - 24 hr 05/05/24 14:09 05/05/24 14:39 05/05/24 14:40 Temperature 98.3 F Pulse Rate 74 Pulse Rate [Pulse Oximeter] 79 Pulse Rate [Right Pulse Oximeter] Respiratory Rate 16 Blood Pressure Blood Pressure [Le ft Arm] Blood Pressure [Ri ght Upper Arm] 124/73 Pulse Oximetry 99 100 [facility] 05/05/24 14:40 05/05/24 14:41 05/05/24 14:46 Temperature Pulse Rate 72 Pulse Rate [Pulse Oximeter] Pulse Rate [Right Pulse Oximeter] Respiratory Rate 16 97 H Blood Pressure 119/49 L Blood Pressure [Le ft Arm] Blood Pressure [Ri ght Upper Arm] Pulse Oximetry [address]od 05/05/24 14:48 05/05/24 14:49 05/05/24 14:50 Temperature Pulse Rate 69 73 Pulse Rate [Pulse Oximeter] Pulse Rate [Right Pulse Oximeter] Respiratory Rate 33 H 16 Blood Pressure 100/59 L Blood Pressure [Le ft Arm] Blood Pressure [Ri ght Upper Arm] Pulse Oximetry [address] thod 05/05/24 15:00 05/05/24 15:02 05/05/24 15:03 Temperature Pulse Rate 66 72 69 Pulse Rate [Pulse Oximeter] Pulse Rate [Right Pulse Oximeter] Respiratory Rate 15 12 70 H Blood Pressure 99/60 Blood Pressure [Le ft Arm] Blood Pressure [Ri ght Upper Arm] Pulse Oximetry 100 99 99 [facility] 05/05/24 15:10 05/05/24 15:15 05/05/24 15:17 Temperature Pulse Rate 64 69 Pulse Rate [Pulse Oximeter] Pulse Rate [Right Pulse Oximeter] Respiratory Rate 13 16 19 Blood Pressure 97/56 L Blood Pressure [Le ft Arm] Blood Pressure [Ri ght Upper Arm] Pulse Oximetry 98 98 98 [facility] 05/05/24 15:20 05/05/24 15:30 05/05/24 15:31 Temperature Pulse Rate 83 65 Pulse Rate [Pulse Oximeter] Pulse Rate [Right Pulse Oximeter] Respiratory Rate 20 14 18 Blood Pressure 97/63 Blood Pressure [Le ft Arm] Blood Pressure [Ri ght Upper Arm] Pulse Oximetry 99 98 99 Oxygen Delivery Me thod 05/05/24 15:40 05/05/24 15:45 05/05/24 15:47 Temperature Pulse Rate 66 67 Pulse Rate [Pulse Oximeter] Pulse Rate [Right Pulse Oximeter] Respiratory Rate 19 18 19 Blood Pressure 101/65 Blood Pressure [Le ft Arm] Blood Pressure [Ri ght Upper Arm] Pulse Oximetry 99 99 99 Oxygen Delivery Me thod 05/05/24 15:48 05/05/24 15:50 05/05/24 16:00 Temperature Pulse Rate 77 Pulse Rate [Pulse Oximeter] Pulse Rate [Right Pulse Oximeter] Respiratory Rate 19 18 20 Blood Pressure Blood Pressure [Le ft Arm] Blood Pressure [Ri ght Upper Arm] Pulse Oximetry 99 100 99 Oxygen Delivery Me thod 05/05/24 16:02 05/05/24 16:10 05/05/24 16:15 Temperature Pulse Rate 68 Pulse Rate [Pulse Oximeter] Pulse Rate [Right Pulse Oximeter] Respiratory Rate 18 18 19 Blood Pressure Blood Pressure [Le ft Arm] Blood Pressure [Ri ght Upper Arm] Pulse Oximetry 99 99 99 Oxygen Delivery Me thod 05/05/24 16:17 05/05/24 16:29 05/05/24 16:30 Temperature Pulse Rate Pulse Rate [Pulse Oximeter] Pulse Rate [Right Pulse Oximeter] Respiratory Rate 20 19 22 Blood Pressure Blood Pressure [Le ft Arm] Blood Pressure [Ri ght Upper Arm] Pulse Oximetry 99 99 99 Oxygen Delivery Me thod 05/05/24 16:32 05/05/24 16:40 05/05/24 16:45 Temperature Pulse Rate 69 Pulse Rate [Pulse Oximeter] Pulse Rate [Right Pulse Oximeter] Respiratory Rate 25 H 21 22 Blood Pressure Blood Pressure [Le ft Arm] Blood Pressure [Ri ght Upper Arm] Pulse Oximetry 98 99 99 Oxygen Delivery Me thod 05/05/24 16:48 05/05/24 16:50 05/05/24 17:00 Temperature Pulse Rate Pulse Rate [Pulse Oximeter] Pulse Rate [Right Pulse Oximeter] Respiratory Rate 20 18 19 Blood Pressure Blood Pressure [Le ft Arm] Blood Pressure [Ri ght Upper Arm] Pulse Oximetry 100 99 99 Oxygen Delivery Me thod 05/05/24 17:02 05/05/24 17:10 05/05/24 17:15 Temperature Pulse Rate 72 Pulse Rate [Pulse Oximeter] Pulse Rate [Right Pulse Oximeter] Respiratory Rate 19 19 18 Blood Pressure Blood Pressure [Le ft Arm] Blood Pressure [Ri ght Upper Arm] Pulse Oximetry 99 99 99 Oxygen Delivery Me thod 05/05/24 17:17 05/05/24 17:20 05/05/24 17:30 Temperature Pulse Rate 79 Pulse Rate [Pulse Oximeter] Pulse Rate [Right Pulse Oximeter] Respiratory Rate 18 17 18 Blood Pressure Blood Pressure [Le ft Arm] Blood Pressure [Ri ght Upper Arm] Pulse Oximetry 99 99 98 Oxygen Delivery Me thod 05/05/24 17:32 05/05/24 17:45 05/05/24 20:25 Temperature 97.8 F Pulse Rate 80 73 Pulse Rate [Pulse Oximeter] Pulse Rate [Right Pulse Oximeter] 84 Respiratory Rate 18 18 18 Blood Pressure 117/67 Blood Pressure [Le ft Arm] 111/69 Blood Pressure [Ri ght Upper Arm] Pulse Oximetry 100 99 94 Oxygen Delivery Me thod Room Air 05/05/24 20:25 05/05/24 21:31 05/05/24 22:43 Temperature Pulse Rate 76 78 Pulse Rate [Pulse Oximeter] Pulse Rate [Right Pulse Oximeter] Respiratory Rate 18 Blood Pressure Blood Pressure [Le ft Arm] Blood Pressure [Ri ght Upper Arm] Pulse Oximetry 94 Oxygen Delivery Me thod Room Air 05/05/24 23:00 05/05/24 23:49 05/06/24 03:27 Temperature 97.9 F 97.8 F Pulse Rate Pulse Rate [Pulse Oximeter] Pulse Rate [Right Pulse Oximeter] 82 82 73 Respiratory Rate 16 16 16 Blood Pressure Blood Pressure [Le ft Arm] 91/55 L 106/64 Blood Pressure [Ri ght Upper Arm] Pulse Oximetry [address] thod Room Air Room Air 05/06/24 07:00 Temperature 97.6 F Pulse Rate Pulse Rate [Pulse Oximeter] Pulse Rate [Right Pulse Oximeter] 83 Respiratory Rate 18 Blood Pressure Blood Pressure [Le ft Arm] 114/78 Blood Pressure [Ri ght Upper Arm] Pulse Oximetry 97 Oxygen Delivery Me thod Room Air DS: Data Data Completed and Pending Completed studies during hospitalization: Procedures Resection of Bilateral Fallopian Tubes, Open Approach (11/14/22) Resection of Bilateral Ovaries, Open Approach (11/14/22) Resection of Uterus, Open Approach (11/14/22) Labs on day of discharge: Labs from last 24 hours 05/05/24 05/05/24 05/05/24 16:58 16:20 14:27 WBC 7.23 RBC 4.65 Hgb 13.3 Hct 39.5 MCV 85 MCH 29 MCHC 34 RDW Coeff of Erin 12.9 Plt Count 296 Neut % (Auto) 70.6 Lymph % (Auto) 24.5 [place] % (Auto) 4.3 Eos % (Auto) 0.4 Baso % (Auto) 0.1 Neut # (Auto) 5.10 Lymph # (Auto) 1.77 [place] # (Auto) 0.30 Eos # (Auto) 0.03 Baso # (Auto) 0.01 Abs Immat Gran (auto) 0.01 Imm/Tot Granulo (auto) 0.1 Sodium 134 L Potassium 4.1 Chloride 99 Carbon Dioxide 27 Anion Gap 8 BUN 19 Creatinine 0.8 Estimated Creat Clear 71.14 Estimated GFR 91 Glucose 164 H Calcium 9.1 Total Bilirubin 0.8 AST 15 ALT 19 Alkaline Phosphatase 81 C-Reactive Protein < 0.5 L Total Protein 6.9 Albumin 4.4 Urine Color Yellow Urine Appearance Clear Urine pH 7.0 Ur Specific [place] 1.015 Urine Protein Negative Urine Glucose (UA) Negative Urine Ketones Negative Urine Blood Negative Urine Nitrite Negative Urine Bilirubin Negative Urine Urobilinogen 1.0 Ur Leukocyte Esterase Negative Urine RBC 0-2 Urine WBC 0-2 Ur Squamous Epith Cells Moderate A Amorphous Sediment Moderate A Urine Bacteria Few A SARS-CoV-2 (PCR) Negative SARS-CoV-2 Influenza Type A (PCR) Negative PCR FLU A Influenza Type B (PCR) Negative PCR FLU B RSV (PCR) Negative PCR RSV Preliminary micro results at discharge 05/05/24 16:20 Urine Culture - Preliminary Urine,Clean Catch Culture in Progress Discharge Plan Discharge Disposition: Home, Self-Care Date of Admission: 05/05/24 20:03 Attending Provider on Discharge: Benita Stafford Primary Care Provider: Madan Wilkinson Condition: Improved Anticipated Discharge Date/Time: 05/06/24 09:23 Discharge Medications: Continued sennosides [senna] 8.6 mg tablet 8.6 mg PO QDAY PRN (Reason: constipation) Qty: 30 0RF glimepiride 4 mg tablet 4 mg PO QAM Qty: 90 1RF Rx Instructions: administer with breakfast (DME) lancets [OneTouch UltraSoft Lancets] Misc See Rx Instructions .Route Qty: 100 12RF Rx Instructions: BID PRN (DME) blood-glucose meter [OneTouch Ultra2 Meter] Misc See Rx Instructions .Route Rx Instructions: As directed dextroamphetamine-amphetamine [Adderall XR] 30 mg capsule,extended release 24hr 60 mg PO QDAY (DME) Diabetic Test Strips Misc See Rx Instructions .ROUTE .MEDSUPPLY Qty: 100 3RF Rx Instructions: As directed (DME) Blood Glucose Meter Misc See Rx Instructions .ROUTE .MEDSUPPLY Qty: 1 0RF Rx Instructions: As directed (DME) OneTouch Ultra Test Strip See Rx Instructions .Route Rx Instructions: tests daily metformin 500 mg tablet extended release 24 hr 2,000 mg PO QDAY Qty: 360 0RF lisinopril-hydrochlorothiazide 10-12.5 mg tablet 1 tab PO QDAY Qty: 90 0RF atorvastatin [Lipitor] 10 mg tablet 10 mg PO QPM Qty: 90 0RF Discharge Orders: Discharge Order (Routine); Ordered 05/06/24 Ordered By: Benita Stafford Patient Education: Vertigo (DC) Activity Level: Activity as Tolerated Discharge Diet: Regular and Diabetic Follow Up Appointments: Madan Wilkinson MD [Primary Care Provider] - 05/14/24 10:45 am ([facility] for follow-up.) Forms: [employer] Info Instructions
--- NOTE | 2024-05-06 12:05 | PC.NURSE ---
Discharge - Pt alert, oriented, cooperative. Up independently with standby assistance in room. Continent of bowel and bladder, tolerating RA and regular diet/fluids. Pt denied pain, SOB, n/v. Reported baseline dizziness with rapid movement/head movement. Reports feeling better than condition upon admission. Family at bedside. IV removed with catheter intact, d/c instructions reviewed with pt and spouse with verbalized understanding. Pt d/c'd to home with spouse via wheelchair at approximately 1130.
== END 2024-05-06 11:34 | disposition home or self-care (01) ==
LOC: ED 19:48 → MEDSURG 20:03
PROVIDERS: Admitting Provider Family Medicine; Emergency Provider Family Medicine; PCP Family Medicine; Visit Provider Family Medicine
DX: R42 Dizziness and giddiness (principal); R51.9 Headache, unspecified; R11.0 Nausea; R11.10 Vomiting, unspecified; E11.9 Type 2 diabetes mellitus without complications; I10 Essential (primary) hypertension; Z79.84 Long term (current) use of oral hypoglycemic drugs; Z86.73 Personal history of transient ischemic attack (TIA), and cerebral infarction without residual deficits
CPT/HCPCS: 36415; 70450; 70496; 70498; 70551; 80053; 81001; 82962; 85025; 86140; 87086; 87631; 93005; 94761; 96361; 96365; 96375; 96376; 97110; 97161; 97166; 99215; 99284; 99291; A9270; G0378; J1200; J1885; J2060; J2765; J7030; Q9967

== ENCOUNTER 2024-07-24 08:15 | Outpatient (RCR) | payer BC, SELFPAY | END 2024-11-19 15:32 | disposition home or self-care (01) | PROVIDERS: PCP Family Medicine; Visit Provider Family Medicine | DX: H81.10 Benign paroxysmal vertigo, unspecified ear (principal); H53.8 Other visual disturbances; R26.89 Other abnormalities of gait and mobility; Z51.89 Encounter for other specified aftercare | CPT/HCPCS: 95992; 97112; 97162 ==

== ENCOUNTER 2024-12-21 18:36 | Emergency (ER) | payer BC, SELFPAY ==
--- OUTSIDE RECORDS SUMMARY | 2024-12-21 18:38 | XMS_ITS | Clinical Summary ---
Author Organization [facility] Address [address] [place] [id number] Care Team Providers Care Hopper Attendant Name Role Phone Wendi Goldman NP Primary Care Provider Allergies No known active allergies Medications dextroamphetami ne-amphetamine (ADDERALL XR) 30 mg Extended-Releas e capsuleIndicati ons:Narcolepsy (HC) Take 60 mg by mouth once daily [...] 09 Anemia, unspecified 12/19/2006 02/23/20 09 Immunizations Immunization Administration Dates Next Due Td (Age >=7 [...] on file Legal Sex Female 7:02 AM [employer] Gender Identity Not on file Sexual Orientation [...] F Vag Livin g Mariss a Delivery Location:[facility] Comments:uncomplicated 004 Term 38w 0d 3.77 kg (8 lb 5 oz) M Vag None Livin g Harley Delivery Location:[facility] Comments:some shoulder dystocia 008 Term 40w 0d [...] Hepatitis C screening for age 18-79 01/10/1994 Hepatitis B series for 19+ (1 of 3 - 19+ 3-dose series) 01/10/1995 Tetanus booster 01/12/2018 01/13/2008, 11/15/1998 Pap test for age 21-65 02/21/2020 7, 02/20/2017, 02/08/2017, Additional history exists Colonoscopy through age 75 01/10/2021 Mammogram for age 45-75 01/10/2021 Lipids for age 45-75 06/14/2024 06/15/2019, 12/08/2011, 10/18/2010, Additional history exists COVID-19 vaccine series ( season) 2024 Influenza Vaccine (#1) 2024 RSV vaccine for adults or (1 - 1-dose 75+ series) 01/10/2051 HIV for age 15-65 Completed 09/11/2006 Pneumococcal series for age 6-49 Aged Out No longer eligible based on patient's age to complete this topic Procedures Procedure Name Priority Date/Time Associated Diagnosis Comments LIPID PANEL Early AM 06/15/2019 6:51 AM CDT GAMERO[employer] TECHNICIAN THIN PREP PAP SCREEN IMAGED Routine 02/20/2017 4:10 PM [employer] ANTI HIV 1/2 Routine 09/11/2006 10:59 AM CDT Supervision Of Other Normal (Hc) from Last 3 Months or Most Recently Relevant to Health Maintenance Results * (ABNORMAL) LIPID PANEL (06/15/2019 6:51 AM CDT) CHOLESTEROL,TOTAL 178 100 - 199 mg/dL 06/15/2019 7:20 AM CDT [facility] [employer] [facility] TRAL LABORATORY TRIGLYCERIDES 165(H) <150 mg/dL 06/15/2019 7:20 AM CDT [facility] TRAL [facility] HDL CHOLESTEROL 35(L) >40 mg/dL 0 7:20 AM CDT [facility] TRAL LAB[facility] NON-HDL CHOLESTEROL 143 <145 mg/dl 06/15/2019 7:20 AM CDT [facility] TRAL LABORATORY CHOL/HDL RATIO 5.09(H) <4.50 06/15/2019 7:20 AM CDT [facility] TR[facility] LDL CHOLESTEROL 110 <=130 mg/dL 06/15/2019 7:20 AM CDT [facility] TRAL LABORAT[facility] PROVIDER ORDERED STATUS RANDOM 06/15/2019 7:20 AM CDT [facility] TR[facility] Blood BLOOD SPECIMEN / Unknown Venipuncture / Unknown 06/15/2019 6:51 AM CDT 06/15/2019 6:58 AM CDT us Rajendra Hernandez DO CHEMISTRY Final R esult [facility] [address] [place] [address], [place] * GAMEROOM TECHNICIAN THIN PREP PAP SCREEN IMAGED (02/20/2017 4:10 PM [employer]) Case Report Gynecologic Cytology Report Case: [id number] Authorizing Provider: Michaela Álvarez PA-C Collected: 02/20/2017 1610 First Screen: Dot Barriga Received: 02/21/2017 1817 Specimen: GAMEROOM TECHNICIAN ThinPrep Vial Screening, Cervical/Vaginal 03/06/2017 4:58 PM [employer] [facility] ENTRMI [facility] INTERPRETATION/ RESULT NEGATIVE FOR INTRAEPITHELIAL LESION OR MALIGNANCY (NIL) (none) 03/06/2017 4:58 PM [employer] [facility] at 1658 [employer] SPECIMEN ADEQUACY Satisfactory for evaluation Endocervical component present 03/06/2017 4:58 PM [employer] [facility] HPV REQUEST HPV and PAP 03/06/2017 4:58 PM [employer] [facility] Date of LMP 02/03/2017 03/06/2017 4:58 PM [employer] [facility] Last Pap Date 02/08/2017 03/06/2017 4:58 PM [employer] [facility] Last Pap Result UNS 7 4:58 PM [employer] [facility] Automated Review Successful 03/06/2017 4:58 PM [employer] [facility] Comment:Specimen processed s uccessfully by automated senior payroll administrator device, ThinPrep Imaging System, [employer] ANCILLARY TESTING GAMEROOM TECHNICIAN HPV Ordered, Please see separate report 03/06/2017 4:58 PM [employer] [facility] Note The pap test is a screening technique, not a diagnostic procedure. It is used primarily to screen for squamous cancers and precursor lesions. Published studies have shown that it is subject to both false negative and false positive results. The pap test should not be used as the sole means to diagnose or exclude pre-malignant and malignant lesions. Interpreted at [facility] ([facility], [facility], [facility], [facility], [facility], [facility], [facility]) 03/06/2017 4:58 PM FORM [employer]TER [employer]MS [facility]-C ENTRAL LABORATORY Other (Cervical/Vagina l) 02/20/2017 4:10 PM [employer] 02/21/2017 6:17 PM [employer] us June Lloyd Álvarez PA-C PATHOLOGY/CYTOLOGY Final R esult [facility] LABOR[facility]ORY [address] [place] [address], [place] * ANTI HIV 1/2 (09/11/2006 10:59 AM CDT) ANTI HIV 1/2 Non-reacti ve [facility] Blood specimen (specimen) BLOOD SPECIMEN / Unknown 09/11/2006 10:59 AM CDT 09/11/2006 10:49 AM CDT Patricia Lo SEND OUTS Final R esult [facility] INTERNAL ZIP [address] [address] from Last 3 Months or Most Recently Relevant to Health Maintenance Insurance [employer] CHOICE [employer]ORT [employer]ORT [employer]ORT [employer]ORT [employer] PAS[employer]ORT WORKERS COMP Advance Directives * Full Code (Latest Code Status on File) Date Activated Date Inactivated Comments 06/14/2019 10:41 PM 06/15/2019 11:37 PM * Full Code Date Activated Date Inactivated Comments 12/19/2006 10:23 AM 12/20/2006 12:27 PM Care Teams Hopper Attendant Relationship Specialty Start Date End Date Wendi Goldman NP PCP - General Nurse Practitioner 11/20/19
[2024-12-21 18:50] VITALS: BP 114/72; PULSE 74; RESP 16; TEMP 36.3; O2SAT 98; BMI 34.0
--- NOTE | 2024-12-21 19:46 | ED.GENADULT ---
HPI - General Adult General Chief complaint: Headache/Migraine Stated complaint: Migraine Time Seen by Provider: 12/21/24 19:20 History of Present Illness HPI narrative: Arrives with complaints of headache that started Sunday and is located behind her left eye. Reports a history of brain tumor removal in 2019 that took away her headaches for the most part. Alert and oriented in triage, having some light sensitivity but denies other symptoms, VSS, ABCs intact. 49-year-old woman presenting to the emergency department with concern of left periorbital/retro-orbital headache. Actually began initially while at work 2 days ago and then settle down and recurred again this afternoon. No loss of vision but is light sensitive. Is nauseated but has not been vomiting. Does have a history of headaches related to meningioma that was resected in 2019. This is not an atypical location for her headache. There is no been no rhinorrhea. No cough or cold symptoms. No fever. No rashes. No sensory deficits or focal weakness. Related Data Home Medications ?Medication ?Instructions ?Recorded ?Confirmed blood-glucose meter (ThoughtFocusTouch 10/31/21 05/15/24 Ultra2 Meter) dextroamphetamine-amphetamine ER 60 mg PO QDAY 03/10/22 12/21/24 30 mg 24hr capsule,extend release (Adderall XR) blood sugar diagnostic (OneTouch 11/21/23 05/15/24 Ultra Test strips) Previous Rx's ?Medication ?Instructions ?Recorded lancets (Opalityuch UltraSoft #100 ea 03/10/22 Lancets) Blood Glucose Meter #1 ea 11/21/23 Diabetic Test Strips #100 ea 11/21/23 sennosides 8.6 mg tablet (senna) 8.6 - 17.2 mg (1 - 2 x 8.6 mg) PO 05/15/24 QDAY constipation #60 tabs metformin 500 mg tablet,extended 2,000 mg (4 x 500 mg) PO QDAY #360 07/01/24 release 24 hr tabs lisinopril 10 1 tab PO QDAY #90 tabs 09/15/24 mg-hydrochlorothiazide 12.5 mg tablet atorvastatin 10 mg tablet (Lipitor) 10 mg PO QPM #30 tabs 12/22/24 Allergies Allergy/AdvReac Type Severity Reaction Status Date / Time No Known Drug Allergies Allergy Verified 12/21/24 18:49 Review of Systems Status of ROS: Reports: 6 or more systems reviewed and unremarkable except as noted in History and below [facility] Medical History Vitamin D deficiency (06/09/09) ?E55.9 - Vitamin D deficiency, unspecified (ICD-10) Epilepsy ?G40.909 - Epilepsy, unspecified, not intractable, without status epilepticus (ICD-10) Influenza B ?J10.1 - Influenza due to other identified influenza virus with other respiratory manifestations (ICD-10) Type 2 diabetes mellitus, without long-term current use of insulin ?E11.9 - Type 2 diabetes mellitus without complications (ICD-10) Meningioma ?D32.9 - Benign neoplasm of meninges, unspecified (ICD-10) Uterine leiomyoma ?D25.9 - Leiomyoma of uterus, unspecified (ICD-10) Panic attack ?F41.0 - Panic disorder [episodic paroxysmal anxiety] (ICD-10) History of abnormal cervical Papanicolaou smear (2008) ?Z87.42 - Personal history of other diseases of the female genital tract (ICD-10) Major depression ?F32.9 - Major depressive disorder, single episode, unspecified (ICD-10) H/O benign neoplasm of craniopharyngeal duct ?Z86.018 - Personal history of other benign neoplasm (ICD-10) Heavy menstrual bleeding ?N92.0 - Excessive and frequent menstruation with regular cycle (ICD-10) HPV in female ?B97.7 - Papillomavirus as the cause of diseases classified elsewhere (ICD-10) Surgical History Status post abdominal hysterectomy (11/14/22) ?Z90.710 - Acquired absence of both cervix and uterus (ICD-10) H/O craniotomy (2019) ?Z98.890 - Other specified postprocedural states (ICD-10) H/O colposcopy with cervical biopsy ?Z98.890 - Other specified postprocedural states (ICD-10) H/O myomectomy ?Z98.890 - Other specified postprocedural states (ICD-10) History of tubal ligation ?Z98.51 - Tubal ligation status (ICD-10) Family History Father Diabetes Mother Diabetes Family/Other Diabetes Uncle Stroke Social History Narrative: Lives in [place] with her , Harley, and her son. 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 Code status is full IUD (intrauterine device) in place- Placed by [facility]. Does not exercise- walking hurts everywhere , [employer], 3 kids, a 60-year-old son at home and a son and daughter in college Non-smoker. No recreational drug use. Rarely consumes alcohol, approximately every other weekend What is your current living situation?: I presently have a place to live Problems where you live: no known problems Problems where you live details: no concerns In the past 12 months, utilities in danger of being shut off: no In past 12 months, lack of transportation kept you from medical appts, meetings, work, or getting things needed for daily living: no In the past 12 mos, have been you worried that your food would run out before you had money to buy more?: never true In the past 12 mos, the food you bought just didn't last and you didn't have money to buy more?: never true Highest level of school completed/degree received: Associate degree: academic program Smoking Status: Never smoker Do you use any of these nicotine containing products: None Second hand tobacco smoke exposure: No How often do you have a drink containing alcohol: monthly or less Alcohol type: beer How many standard drinks containing alcohol do you have on a typical day: 1 or 2 How often do you have six or more drinks on one occasion: Never AUDIT-C Alcohol total score: 1 Non-prescribed substance use: denies use Caffeine: Yes How often does anyone, including family, friends and others, physically hurt you: never How often does anyone, including family, friends and others, insult or talk down to you: never How often does anyone, including family, friends and others, threaten you with harm: never How often does anyone, including family, friends and others, scream or curse at you: never service: No Exam Narrative: Exam Narrative: Pleasant. NAD though squinting against the light. Head with palpable surgical hole at the left parietal scalp. Extraocular movements are full. Pupils are 3-4 mm and equal and appropriate reactive. Neck is supple. No tenderness to palpation about the cervical musculature. Moving all extremities without difficulty. She is well-perfused. No edema. Const: Vital Signs, click to edit/add: Vital Signs - 24 hr 12/21/24 18:50 Temperature 97.3 F L Pulse Rate [Pulse Oximeter] 74 Respiratory Rate 16 Blood Pressure [Ri ght Upper Arm] 114/72 Pulse Oximetry 98 Oxygen Delivery Me thod Room Air Documenting provider has reviewed patient's vital signs: yes Course Vital Signs Vital signs: Initial Vital Signs Temperature 97.3 F L 12/21/24 18:50 Temperature Source Temporal Artery Scan 12/21/24 18:50 Pulse Rate 74 12/21/24 18:50 Respiratory Rate 16 12/21/24 18:50 Blood Pressure 114/72 12/21/24 18:50 Blood Pressure Mean 86 12/21/24 18:50 Pulse Oximetry 98 12/21/24 18:50 Oxygen Delivery Method Room Air 12/21/24 18:50 Vital Signs Temperature 97.3 F L 12/21/24 18:50 Pulse Rate 74 12/21/24 18:50 Respiratory Rate 16 12/21/24 18:50 Blood Pressure 114/72 12/21/24 18:50 Pulse Oximetry 98 12/21/24 18:50 Oxygen Delivery Method Room Air 12/21/24 18:50 Temperature 97.3 F L 12/21/24 18:50 Pulse Rate 74 12/21/24 18:50 Respiratory Rate 16 12/21/24 18:50 Blood Pressure 114/72 12/21/24 18:50 Pulse Oximetry 98 12/21/24 18:50 Oxygen Delivery Method Room Air 12/21/24 18:50 Medications Administered Medications: Discontinued Medications Generic Name Dose Route Start Last Admin Trade Name Freq PRN Reason Stop Dose Admin Acetaminophen 1,000 mg 12/21/24 20:41 12/21/24 20:45 Acetaminophen 500 Mg Tablet PO 12/21/24 20:42 1,000 mg ONCE ONE Administration Ibuprofen 400 mg 12/21/24 20:41 12/21/24 20:46 Ibuprofen 200 Mg Tablet PO 12/21/24 20:42 400 mg ONCE ONE Administration Lidocaine HCl 3 ml 12/21/24 19:58 10/12/25 20:01 Lidocaine 1% 5 Ml (Pf) 5 Ml Vial INJECTION 12/21/24 19:59 3 ml ONCE ONE Administration Medical Decision Making MDM Narrative Medical decision making narrative: Headache is familiar. No red flags in history. Complicating is meningioma history resection. I think unlikely to had recurrence or bleed here. Physical exam otherwise is reassuring. I would focus on treatment of this headache. Does not appear to have a tension component. Cluster headaches are not a familiar term to her. Given the periorbital nature of this headache and might try atomized intranasal lidocaine. She would like to do this with preference to defer IV treatment otherwise. Also maximizing recent dose of ibuprofen and giving acetaminophen. Ice pack as well. Is simply is not improved would escalate treatment and/or imaging. I atomized intranasal 1% lidocaine 1 mL into each nostril. After a time, on reassessment is markedly improved. I am happy you are feeling better. Your received intranasal lidocaine here today and a little more ibuprofen along with acetaminophen. And an ice pack. Continue to stay well-hydrated. Try to get in a little heart pumping exercise daily if possible. Get quality and regular sleep. Excedrin equivalent might be helpful for headaches in the future. Of course if headaches are escalating, persisting, would be re-evaluated particularly given your history. Medical Records Medical records reviewed: Yes I reviewed the patient's medical records Discharge Plan Discharge Clinical Impression: Periorbital headache Patient Disposition: Home w/ Parent or Adult Condition: Improved Instructions: Acute Headache (ED) Additional Instructions: I am happy you are feeling better. Your received intranasal lidocaine here today and a little more ibuprofen along with acetaminophen. And an ice pack. Continue to stay well-hydrated. Try to get in a little heart pumping exercise daily if possible. Get quality and regular sleep. Excedrin equivalent might be helpful for headaches in the future. Of course if headaches are escalating, persisting, would be re-evaluated particularly given your history. Activity Level: No Restrictions Discharge Diet: Regular Prescriptions: No Action (DME) lancets [OneTouch UltraSoft Lancets] Misc See Rx Instructions .Route Qty: 100 12RF Rx Instructions: BID PRN sennosides [senna] 8.6 mg tablet 8.6 - 17.2 mg PO QDAY Qty: 60 5RF (DME) blood-glucose meter [OneTouch Ultra2 Meter] Misc See Rx Instructions .Route Rx Instructions: As directed dextroamphetamine-amphetamine [Adderall XR] 30 mg capsule,extended release 24hr 60 mg PO QDAY (DME) Diabetic Test Strips Misc See Rx Instructions .ROUTE .MEDSUPPLY Qty: 100 3RF Rx Instructions: As directed (DME) Blood Glucose Meter Misc See Rx Instructions .ROUTE .MEDSUPPLY Qty: 1 0RF Rx Instructions: As directed (DME) OneTouch Ultra Test Strip See Rx Instructions .Route Rx Instructions: tests daily metformin 500 mg tablet extended release 24 hr 2,000 mg PO QDAY Qty: 360 1RF lisinopril-hydrochlorothiazide 10-12.5 mg tablet 1 tab PO QDAY Qty: 90 1RF atorvastatin [Lipitor] 10 mg tablet 10 mg PO QPM Qty: 30 0RF Follow Up/Referrals: Madan Wilkinson MD [Primary Care Provider, Family Practice] Stand Alone Forms: [employer] Info Instructions
[2024-12-21] MEDS: LIDOCAINE 1% 5 ml (pf) 5 ML VIAL 3 ML INJECTION (20:01)
[2024-12-21] MEDS: ACETAMINOPHEN 500 MG TABLET 1000 MG PO (20:45)
[2024-12-21] MEDS: IBUPROFEN 200 MG TABLET 400 MG PO (20:46)
== END 2024-12-21 21:16 | disposition home or self-care (01) ==
PROVIDERS: Emergency Provider Family Medicine; PCP Family Medicine
DX: G43.909 Migraine, unspecified, not intractable, without status migrainosus (principal)
CPT/HCPCS: 99283; 99284; A9270

== ENCOUNTER 2024-12-31 08:21 | Outpatient (CLI) | payer BC, SELFPAY | END 2024-12-31 08:22 | disposition home or self-care (01) | PROVIDERS: PCP Family Medicine; Visit Provider Family Medicine | DX: E11.9 Type 2 diabetes mellitus without complications (principal); I10 Essential (primary) hypertension | CPT/HCPCS: 80048; 80061 ==